=== PATIENT | male | born 1930 | race Two or more races ===

== ENCOUNTER → 2016-12-06 | Outpatient (CLI) | payer MEDICARE | LOC: RAD 16:08 | PROVIDERS: ATTEND Otolaryngology | DX: R93.0 Abnormal findings on diagnostic imaging of skull and head, not elsewhere classified (principal) | CPT/HCPCS: 70486 ==

== ENCOUNTER 2017-10-04 14:56 | Emergency (ER) | payer MEDICARE ==
--- NOTE | 2017-10-04 15:15 | ER Document Report ---
ED General - General Chief Complaint: Weakness Stated Complaint: WEAKNESS Time Seen by Provider: 10/04/17 14:58 Notes: The patient is an 87-year-old male, past medical history CHF, chronic nasal polyp, presents after he was at the doctor's office for a cough for 4 days when he had a brief syncopal episode and then vomited once. The daughter, who is an RN, said that the patient frequently has these episodes, especially when he is a passenger in the car. He will have brief episodes of syncope, awake and then vomit. 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 Patient is not having any abdominal pain and denies any current nausea, vomiting, fevers, diarrhea, constipation, chest pain, shortness of breath, focal weakness, numbness, tingling or ataxia. TRAVEL OUTSIDE OF THE [place] IN LAST 30 DAYS: No - Related Data Allergies/Adverse Reactions: No Known Allergies Allergy (Unverified 10/04/17 16:46) Past Medical History - General Information source: Patient, Relative - Social History Smoking Status: Unknown if Ever Smoked Family History: Reviewed & Not Pertinent Review of Systems - Review of Systems Notes: REVIEW OF SYSTEMS: CONSTITUTIONAL: -fevers, -chills EENT: -eye pain, -difficulty swallowing, -nasal congestion CARDIOVASCULAR: -chest pain RESPIRATORY: -cough, -SOB GASTROINTESTINAL: -abdominal pain, -nausea, +vomiting, -diarrhea GENITOURINARY: -dysuria, -hematuria MUSCULOSKELETAL: -back pain, -neck pain SKIN: -rash or skin lesions. HEMATOLOGIC: -easy bruising or bleeding. LYMPHATIC: -swollen, enlarged glands. NEUROLOGICAL: -altered mental status or loss of consciousness, -headache, - neurologic symptoms PSYCHIATRIC: -anxiety, -depression. ALL OTHER SYSTEMS REVIEWED AND NEGATIVE. Physical Exam - Vital signs Vitals: Resp 18 10/04/17 15:00 - Notes Notes: PHYSICAL EXAMINATION: GENERAL: No acute distress. HEAD: Atraumatic, normocephalic. EYES: Pupils equal round and reactive to light, extraocular movements intact, sclera anicteric, conjunctiva are normal. ENT: nares patent, oropharynx clear without exudates. Moist mucous membranes. NECK: Normal range of motion, supple without lymphadenopathy LUNGS: Breath sounds clear to auscultation bilaterally and equal. No wheezes rales or rhonchi. HEART: Regular rate and rhythm without murmurs ABDOMEN: Soft, nontender, normoactive bowel sounds. No guarding, no rebound. No masses appreciated. EXTREMITIES: Normal range of motion, no pitting or edema. No cyanosis. NEUROLOGICAL: Cranial nerves grossly intact. Normal speech, normal gait. Normal sensory and motor exams. PSYCH: Normal mood, normal affect. SKIN: Warm, Dry, normal turgor, no rashes or lesions noted. Course - Re-evaluation Re-evalutation: Patient appears well and is in no acute distress. He has absolutely no abdominal tenderness and has no nausea or vomiting. His blood work is remarkable for slight UBALDO, most likely from dehydration. He is also hypokalemic and this was repleted. 2 sets of troponins remained the same, EKG does not show any acute abnormalities and he has no chest pain to suggest ACS. Chest x-ray does not show any focal infiltrates, but patient does have a leukocytosis and crackles on exam, so we will treat with Levaquin for possible early pneumonia. Patient has had an extensive workup for these short syncopal episodes in [place]. Shared decision making was made with his daughter who is a RN. Given very strict return precautions and they understand. They will follow-up with the primary care physician this week for recheck of his symptoms and recheck of his blood work. Blood work provided to daughter to take with her. - Vital Signs Vital signs: Temp Pulse Resp BP Pulse Ox 98.8 F 19 117/76 96 10/04/17 15:45 10/04/17 21:01 10/04/17 21:01 10/04/17 21:01 - Laboratory Result Diagrams: 10/04/17 15:20 10/04/17 15:20 Laboratory results interpreted by me: 10/04/17 10/04/17 10/04/17 15:20 15:20 15:20 WBC 12.5 H RBC 4.15 L Hgb 13.2 L RDW 15.3 H Absolute Neutrophils 9.0 H Absolute Eosinophils 0.7 H VBG pH Sodium 134.0 L Potassium 2.5 L* Chloride 90 L Carbon Dioxide 32 H BUN 54 H Creatinine 1.49 H Est GFR ( Amer) 54 L Est GFR (Non-Af Amer) 45 L Glucose 129 H Lactic Acid Direct Bilirubin 0.5 H ALT 16 L Creatine Kinase 42 L NT-Pro-B Natriuret Pep 789 H Urine Blood Urine Urobilinogen Ur Leukocyte Esterase 10/04/17 10/04/17 10/04/17 15:20 15:20 16:01 WBC RBC Hgb RDW Absolute Neutrophils Absolute Eosinophils VBG pH 7.44 H Sodium Potassium Chloride Carbon Dioxide BUN Creatinine Est GFR ( Amer) Est GFR (Non-Af Amer) Glucose Lactic Acid 2.4 H Direct Bilirubin ALT Creatine Kinase NT-Pro-B Natriuret Pep Urine Blood SMALL H Urine Urobilinogen 2.0 H Ur Leukocyte Esterase TRACE H - Diagnostic Test Radiology reviewed: Image reviewed, Reports reviewed Radiology results interpreted by me: CXR: NAD - EKG Interpretation by Me EKG shows normal: Sinus rhythm, [place], Intervals, QRS Complexes, ST-T Waves Rate: Normal Discharge - Discharge Clinical Impression: Dehydration, Bronchitis Vomiting Qualifiers: Vomiting type: unspecified Vomiting Intractability: unspecified Nausea presence : without nausea Qualified Code(s): R11.11 - Vomiting without nausea Condition: Stable Disposition: HOME, SELF-CARE Additional Instructions: BRONCHITIS: You have acute bronchitis. This disease is an infection or inflammation of the air passageways in your lungs. Symptoms usually include cough, low grade fever, shortness of breath, and wheezing. The cough usually persists for a couple of weeks. Most cases of bronchitis get better without antibiotics. We prescribe antibiotics when we believe bacteria are damaging your airways, or if there's high risk the bronchitis will worsen into pneumonia. Increase your fluid intake. A cool mist humidifier may make your lungs more comfortable. An expectorant (cough medicine that loosens phlegm) can help. If you smoke, STOP!!! Recovery from bronchitis can be somewhat slow, but you should see improvement within a day or two. Repeated episodes of bronchitis may result in lung damage -- for example, chronic bronchitis, recurrent pneumonias, or emphysema. Call the doctor if you develop increasing fever, shortness of breath, chest pain, bloody sputum, or otherwise worsen. If you have not improved at all after several days, contact the physician. STEROID MEDICATION: You have been given an injection of or oral medicine of the cortisone/ steroid class. This medication is used to control inflammation or allergy. Tamir t is usually only given for a short period of time, until the acute process subsides. There are usually no side effects from short-term use of cortisone-like medications. Some persons feel an increased sense of well-being and are not sleepy at bedtime. Long-term use of cortisone medications is best avoided, unless required for a severe condition. If your condition does not remit, or relapses after the course of corticosteroid medication, you should consult your physician. ANTIBIOTIC THERAPY: You have been given an antibiotic prescription. It's important that you take all the medication, unless instructed otherwise by your physician. Failure to complete the entire course can result in relapse of your condition. Common side effects of antibiotics include nausea, intestinal cramping, or diarrhea. Women may develop vaginal yeast infections, and babies can get yeast (thrush) in the mouth following the use of antibiotics. Contact your physician if you develop significant side effects from this medication. Allergy to this antibiotic can result in hives, wheezing, faintness, or itching. If symptoms of allergy occur, stop the medication and call your doctor. USE OF ACETAMINOPHEN (Tylenol): Acetaminophen may be taken for pain relief or fever control. It's much safer than aspirin, offering a wider range of "safe" dosages. It is safe during . Some brand names are Tylenol, Panadol, Datril, Anacin 3, Tempra, and Liquiprin. Acetaminophen can be repeated every four hours. The following are maximum recommended dosages: >89 pounds or adults 650 mg to 900 mg Acetaminophen can be repeated every four hours. Maximum dose not to exceed 4000 mg a day. SMOKING: If you smoke, you should stop smoking. The tar and chemicals in cigarette smoke are harmful. Smoking has been shown to cause: emphysema chronic bronchitis lung cancer mouth and throat cancer stomach and pancreas cancer premature aging defects In addition, smoking increases ear and lung infections in children of smokers. FOLLOW-UP CARE: If you have been referred to a physician for follow-up care, call the physician s office for an appointment as you were instructed or within the next two days. If you experience worsening or a significant change in your symptoms, notify the physician immediately or return to the Emergency Department at any time for re-evaluation. Syncopal Episode Syncope (fainting or near-fainting) can occur from many different health problems. Or it can be a simple fainting spell requiring no treatment. It is safe for you to go home, but further evaluation will likely be necessary. Your work-up may include tests for internal bleeding, heart disease, medication problems, or near-strokes. Tests are not always required, however, depending on the nature of your problem. The warning signs of an impending faint include: dizziness, lightheadedness , nausea, hot flashes, tingling, and weakness. If this happens, lay down and put your feet up, then wait until all of these symptoms have passed before standing up again. If these episodes become recurrent, or if you develop chest pain, heart palpitations, mental confusion, blurred vision, or headache, then you should call the physician, or go to the emergency room. Prescriptions: Albuterol Sulfate [Proair HFA Inhalation Aerosol 8.5 gm MDI] 2 puff IH Q4H PRN # 1 mdi PRN Reason: Levofloxacin [Levaquin 750 mg Tablet] 750 mg PO DAILY #4 tablet Forms: Elevated Blood Pressure Referrals: [facility] [Outside] - Follow up as needed
[2017-10-04] MEDS ORDERED: ONDANSETRON HCL INJ/PF 4 MG/2 ML SDV IV ONE (15:17)
[2017-10-04] MEDS ORDERED: NORMAL SALINE 500 ML IV ONE (15:17)
--- NOTE | 2017-10-04 15:24 | RADIOLOGY REPORT (SQ) ---
EXAM DESCRIPTION: CT HEAD WITHOUT COMPLETED DATE/TIME: 10/04/2017 3:08 pm REASON FOR STUDY: AMS COMPARISON: None. TECHNIQUE: Axial images acquired through the brain without intravenous contrast. Images reviewed wi th bone, brain and subdural windows. Images stored on PACS. All CT scanners at this facility use dose modulation, iterative reconstruction, and/or weight based d osing when appropriate to reduce radiation dose to as low as reasonably achievable (ALARA). [facility]: Dose Right [facility]: CareDose [facility]: Dose Right [facility]: Teradose 4D [facility]: 9GAG RADIATION DOSE: CT Rad equipment meets quality standard of care and radiation dose reduction techniq ues were employed. CTDIvol: 64.6 mGy. DLP: 1034 mGy-cm. mGy. LIMITATIONS: None. FINDINGS: CEREBRUM: No CT evidence of acute large territory ischemic change, acute intracranial hemo rrhage, mass effect, or midline shift. 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 There is moder ate bifrontal chronic appearing small vessel white matter disease. CEREBELLUM: No masses. No hemorrhage. No alteration of density. No evidence for acute infarction. EXTRAAXIAL SPACES: No fluid collections. No masses. ORBITS AND GLOBE: No intra- or extraconal masses. Normal contour of globe without masses. CALVARIUM: No fracture. PARANASAL SINUSES: There are multiple large right nasal polyps with occlusion of the right maxillary sinus outlet, and opacification of the right maxillary sinus with dried secretions. SOFT TISSUES: No mass or hematoma. OTHER: No other significant finding. 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 ENT evaluation dick mmended EVIDENCE OF ACUTE STROKE: NO. COMMENT: Quality ID # [id number]: Final reports with documentation of one or more dose reduction techniques (e.g., Automated exposure control, adjustment of the mA and/or kV according to patient size, use of iterative reconstruction technique) TECHNICAL DOCUMENTATION: JOB ID: [id number] [employer]- All Rights Reserved Reading location - IP/workstation name: [facility]
[2017-10-04 15:35] LABS: ABSOLUTE BASOPHILS # (AUTO) 0.1 10^3/uL (0.0-0.2); ABSOLUTE EOSINOPHILS # (AUTO) 0.7 10^3/uL (0.0-0.6); ABSOLUTE LYMPHOCYTES (AUTO) 1.9 10^3/uL (0.5-4.7); ABSOLUTE MONOCYTES (AUTO) 0.8 10^3/uL (0.1-1.4); BASOPHILS % (AUTO) 0.7 % (0-2); EOSINOPHILS % (AUTO) 5.3 % (0-6); HEMOGLOBIN 13.2 g/dL (13.5-17.0); LYMPHOCYTES % (AUTO) 15.2 % (13-45); MEAN CORPUSCULAR HEMOGLOBIN 31.7 pg (27.0-33.4); MEAN CORPUSCULAR HGB CONC 32.9 g/dL (32.0-36.0); MEAN CORPUSCULAR VOLUME 96 fl (80-97); MONOCYTES % (AUTO) 6.5 % (3-13); PLATELET COUNT 268 10^3/uL (150-450); RED BLOOD COUNT 4.15 10^6/uL (4.35-5.55); RED CELL DISTRIBUTION WIDTH 15.3 % (11.5-14.0); SEGMENTED NEUTROPHILS % (AUTO) 72.3 % (42-78); TOTAL CELLS COUNTED % (AUTO) 100 %; WHITE BLOOD COUNT 12.5 10^3/uL (4.0-10.5)
[2017-10-04 15:37] LABS: VENOUS BLOOD BASE EXCESS 5.9 mmol/L; VENOUS BLOOD PCO2 46.2 mmHg (35-63); VENOUS BLOOD PH 7.44 (7.30-7.42)
[2017-10-04 15:54] LABS: ALANINE AMINOTRANSFERASE 16 U/L (21-72); ALKALINE PHOSPHATASE 65 U/L (38-126); ANION GAP 12 (5-19); ASPARTATE AMINO TRANSFERASE 26 U/L (17-59); BILIRUBIN,DIRECT 0.5 mg/dL (0.0-0.4); BILIRUBIN,TOTAL 0.6 mg/dL (0.2-1.3); BLOOD UREA NITROGEN 54 mg/dL (7-20); CALCIUM 8.9 mg/dL (8.4-10.2); CARBON DIOXIDE 32 mmol/L (22-30); CHLORIDE 90 mmol/L (98-107); CREATINE KINASE 42 U/L (55-170); GLUCOSE 129 mg/dL (75-110); TOTAL PROTEIN 7.4 g/dL (6.3-8.2)
[2017-10-04 16:03] LABS: POTASSIUM 2.5 mmol/L (3.6-5.0)
[2017-10-04] MEDS ORDERED: POTASSIUM CHLORIDE 10 MEQ TABLET.SA PO ONE ×2 (16:03→19:16)
[2017-10-04 16:10] LABS: TROPONIN I 0.06 ng/mL
[2017-10-04 16:27] LABS: AMORPHOUS SEDIMENT,URINE TRACE /HPF; APPEARANCE,URINE SLIGHTLY-CLOUDY; BILIRUBIN,URINE NEGATIVE (NEGATIVE); COLOR,URINE YELLOW; GLUCOSE, URINE NEGATIVE (NEGATIVE); KETONES,URINE NEGATIVE (NEGATIVE); LEUKOCYTE ESTERASE,URINE TRACE (NEGATIVE); NITRITE,URINE NEGATIVE (NEGATIVE); PROTEIN,URINE NEGATIVE (NEGATIVE)
--- NOTE | 2017-10-04 17:02 | RADIOLOGY REPORT (SQ) ---
EXAM DESCRIPTION: CHEST SINGLE VIEW COMPLETED DATE/TIME: 10/04/2017 4:45 pm REASON FOR STUDY: cough COMPARISON: None. EXAM PARAMETERS: NUMBER OF VIEWS: One view. TECHNIQUE: Single frontal radiographic view of the chest acquired. RADIATION DOSE: NA LIMITATIONS: Poor inspiration. FINDINGS: LUNGS AND PLEURA: No opacities, masses or pneumothorax. No pleural effusion. MEDIASTINUM AND HILAR STRUCTURES: No masses. Contour normal. HEART AND VASCULAR STRUCTURES: Heart normal in size. Normal vasculature. BONES: No acute findings. HARDWARE: Left subclavian pacer with single lead in the right ventricle. OTHER: Air below the right hemidiaphragm which appears to be a loop of colon, not significant. IMPRESSION: Poor inspiration without evidence of acute cardiopulmonary disease. TECHNICAL DOCUMENTATION: JOB ID: [id number] [employer]- All Rights Reserved Reading location - IP/workstation name: [email or web address]
[2017-10-04 17:13] LABS: A TYPE INFLUENZA AG NEGATIVE (NEGATIVE); B INFLUENZA AG NEGATIVE (NEGATIVE)
--- NOTE | 2017-10-04 19:06 | EKG REPORT ---
SEVERITY:- BORDERLINE ECG - SINUS RHYTHM BORDERLINE T ABNORMALITIES, DIFFUSE LEADS : Confirmed by: Juan Luis King MD 04-Oct-2017 19:05:54
[2017-10-04] MEDS ORDERED: LEVOFLOXACIN 750 MG/D5W RTU 750 MG/150 ML RTUPB IV ONE (20:10)
[2017-10-04 22:26] VITALS: BP 119/71
== END 2017-10-04 22:24 | disposition home or self-care (01) ==
LOC: ER 14:56
DX: J40 Bronchitis, not specified as acute or chronic (principal); E86.0 Dehydration; R11.11 Vomiting without nausea; R53.1 Weakness; I50.9 Heart failure, unspecified; R05 Cough; R55 Syncope and collapse
CPT/HCPCS: 93005; 99285; 96361; 51701; 96375; 96365; 36415; 82550; 83605; 83690; 85025; 80053; 81001; 84484; 82803; 87804; 83880; 71045; 70450; 93010; J2405; J7040; A9270; J1956

== ENCOUNTER 2017-12-31 23:14 | Inpatient (IN) | payer MEDICARE ==
--- NOTE | 2017-12-31 23:35 | ER Document Report ---
ED General - General Stated Complaint: CHEST PAIN Time Seen by Provider: 12/31/17 23:32 TRAVEL OUTSIDE OF THE [place] IN LAST 30 DAYS: No - HPI Notes: Note history is limited, patient is very uncomfortable, will not answer most questions. 87-year-old male with alleged epigastric discomfort. Time of onset and course is unclear what happened sometime this evening. Initially complained of some epigastric pain. He himself does not describe the pain in any way. He is somewhat tachypneic and uncomfortable. No vomiting. Has a history of constipation, has had to take some laxatives and may have had a bowel movement last day for last 1 week before that. No vomiting. - Related Data Allergies/Adverse Reactions: No Known Allergies Allergy (Unverified 10/04/17 16:46) Past Medical History - General Information source: Patient - Social History Smoking Status: Smoker,Current Status Unk Family History: Reviewed & Not Pertinent - Medical History Notes: Includes history of A. fib Renal/ Medical History: Denies: Hx Peritoneal Dialysis Review of Systems - Review of Systems -: Yes ROS unobtainable due to patient's medical condition Physical Exam - Vital signs Vitals: Resp 31 H 12/31/17 23:20 - Notes Notes: General: Well developed . Distress. HEENT: Normocephalic, atraumatic. Pupils equal round reactive to light. No JVD. Mucosa. Chest: No trauma. Respiratory: Good air exchange, normal excursion. Cardiac: Regular rhythm. No murmurs or gallops. Abdomen: Soft, mildly distended. Left mid quadrant tenderness, mild epigastric tenderness. Back: No asymmetry or gross abnormality. Motor: Grossly normal power and tone. Neurologic: Alert, nonfocal. Not cooperate with final neurologic testing. Vascular: Well perfused. Normal peripheral pulses. Skin: No petechiae or purpura. Course - Re-evaluation Re-evalutation: 12/31/17 23:34 87-year-old male with the after mentioned symptoms. Examination shows moderate abdominal tenderness. Shortly exam is concerning for underlying abdominal pathology emergency. Consider obstruction, perforation, AAA or other etiology. Plan to proceed with basic labs, obstruction series, IV fluids and access, reevaluate. 01/01/18 01:34 Labs reviewed, significant leukocytosis is noted, no bandemia. Chemistry showed an acute on chronic kidney injury, significant hypokalemia with a potassium of 2.4. Urinalysis is currently pending. Chest x-ray shows some equivocal bilateral lower lung infiltrates. Patient did undergo noncontrast CT scanning to evaluate his abdominal pain and to exclude AAA. CT scan of the abdomen shows no acute emergent abdominal abnormality, there is noted to be a renal lesion that requires later follow-up. However, it does comment on bilateral strandy opacities consistent with pneumonia. Given the patient has recently been on Levaquin, I will escalate his antibiotic coverage to cefepime and vancomycin. He is receiving IV fluids, I did perform a goal-directed bedside ultrasound which did not show any significant urine in his bladder. Soto catheter will be placed. Will be cautious with his volume resuscitation given his underlying history of congestive heart failure. Patient is also receiving IV potassium runs. - Vital Signs Vital signs: Temp Pulse Resp BP Pulse Ox 97.8 F 32 H 111/64 97 01/01/18 00:25 01/01/18 00:01 01/01/18 00:01 01/01/18 00:01 - Laboratory Result Diagrams: 12/31/17 22:50 12/31/17 22:50 Laboratory results interpreted by me: 12/31/17 12/31/17 12/31/17 22:50 22:50 22:50 WBC 20.6 H RDW 15.7 H Seg Neuts % (Manual) 79 H Abs Neuts (Manual) 16.3 H PT 17.5 H Potassium 2.4 L* Chloride 86 L Carbon Dioxide 34 H BUN 76 H Creatinine 2.42 H Est GFR ( Amer) 31 L Est GFR (Non-Af Amer) 25 L Glucose 135 H ALT 18 L Lipase 479.1 H Discharge - Discharge Clinical Impression: UBALDO (acute kidney injury), Hypokalemia Pneumonia Qualifiers: Pneumonia type: due to unspecified organism Laterality: bilateral Lung location : unspecified part of lung Qualified Code(s): J18.9 - Pneumonia, unspecified organism Condition: Serious Disposition: ADMITTED INPATIENT Admitting Provider: Hospitalist Unit Admitted: Telemetry
[2017-12-31 23:47] LABS: ALANINE AMINOTRANSFERASE 18 U/L (21-72); ALKALINE PHOSPHATASE 56 U/L (38-126); ANION GAP 18 (5-19); ASPARTATE AMINO TRANSFERASE 43 U/L (17-59); BILIRUBIN,DIRECT 0.2 mg/dL (0.0-0.4); BILIRUBIN,TOTAL 0.9 mg/dL (0.2-1.3); BLOOD UREA NITROGEN 76 mg/dL (7-20); CALCIUM 9.5 mg/dL (8.4-10.2); CARBON DIOXIDE 34 mmol/L (22-30); CHLORIDE 86 mmol/L (98-107); GLUCOSE 135 mg/dL (75-110); LIPASE 479.1 U/L (23-300); SODIUM 137.7 mmol/L (137-145); TOTAL PROTEIN 7.5 g/dL (6.3-8.2)
[2017-12-31 23:50] LABS: HEMATOCRIT 44.8 % (37.9-51.0); HEMOGLOBIN 14.7 g/dL (13.5-17.0); MEAN CORPUSCULAR HEMOGLOBIN 31.4 pg (27.0-33.4); MEAN CORPUSCULAR HGB CONC 32.8 g/dL (32.0-36.0); MEAN CORPUSCULAR VOLUME 96 fl (80-97); PLATELET COUNT 310 10^3/uL (150-450); POTASSIUM 2.4 mmol/L (3.6-5.0); RED BLOOD COUNT 4.67 10^6/uL (4.35-5.55); RED CELL DISTRIBUTION WIDTH 15.7 % (11.5-14.0); WHITE BLOOD COUNT 20.6 10^3/uL (4.0-10.5)
[2017-12-31 23:53] LABS: INTERNATIONAL RATION (INR) 1.36; PROTHROMBIN TIME 17.5 SEC (11.4-15.4)
[2018-01-01 00:08] LABS: ABSOLUTE LYMPHOCYTES# (MANUAL) 3.3 10^3/uL (0.5-4.7); ABSOLUTE NEUTROPHILS# (MANUAL) 16.3 10^3/uL (1.7-8.2); ANISOCYTOSIS SLIGHT; BASOPHILS % (MANUAL) 0 % (0-2); EOSINOPHILS % (MANUAL) 0 % (0-6); LYMPHOCYTES % (MANUAL) 16 % (13-45); MONOCYTES % (MANUAL) 5 % (3-13); PLATELET COMMENT ADEQUATE; PLATELET GIANT PRESENT; PLATELET LARGE PRESENT; SEGMENTED NEUTROPHILS % (MAN) 79 % (42-78); TOTAL CELLS COUNTED 100; TOXIC VACUOLATION PRESENT
[2018-01-01] MEDS ORDERED: POTASSI CL 20 MEQ/50 ML RIDER 20 MEQ/50 ML RTUPB IV ONE (00:14)
--- NOTE | 2018-01-01 01:07 | RADIOLOGY REPORT (SQ) ---
EXAM DESCRIPTION: CT ABDOMEN PELVIS WITHOUT IV CONTRAST CLINICAL HISTORY: 87 years Male, Pain and distention, renal insuff Comparison: None. Technique: No contrast. Coronal and sagittal reformat. This exam was performed according to our departmental dose-optimization program, which includes automated exposure control, adjustment of the mA and/or kV according to patient size and/or use of iterative reconstruction technique.[facility]: Dose Right [facility]: CareDose [facility]: Dose Right [facility]: Teradose 4D [facility]: Kardium LIMITATIONS: None. Findings: Indeterminate left renal lesions measure up to 1.9 cm, 22-HU. Small strandy and consolidative opacity of bilateral lower lobes. Atherosclerosis. Moderate colonic stool retention. Normal appendix. Small bilateral inguinal fat only hernia. Likely benign 1.2 cm low-attenuation left hepatic lesion not definitively characterized. Moderate disc desiccation between L2 and S1 include 0.5 cm degenerative L3 and L4 retrolisthesis. Bone demineralization. Unenhanced lower thorax, abdominopelvic structures, and musculoskeleton appear otherwise grossly unremarkable. Impression: 1. Small bilateral lower lobar pneumonia/atelectasis. 2. Indeterminate left renal lesions measure up to 1.9 cm. Recommend further evaluation with multiphasic contrast CT or MRI of the renal system.
--- NOTE | 2018-01-01 01:16 | RADIOLOGY REPORT (SQ) ---
EXAM DESCRIPTION: XR CHEST 1 VIEW CLINICAL HISTORY: 87 years Male, Dyspnea COMPARISON: 2.23.18. CT abdomen pelvis, same day. NUMBER OF VIEWS/TECHNIQUE: 1/AP FINDINGS: Moderate lung volume, mild central edema pattern, normal cardiac silhouette, left cardiac stimulator with lead, and mild osteoarthritis. IMPRESSION: Mild central edema pattern.
[2018-01-01] MEDS ORDERED: VANCOMYCIN HCL INJ 1000 MG VIAL IV ONE (01:18)
[2018-01-01] MEDS ORDERED: CEFEPIME 2 GM/D5W RTU 2 GM/50 ML RTUPB IV ONE (01:18)
[2018-01-01] MEDS ORDERED: NORMAL SALINE 1000 ML 500 ML IV ONE (01:18)
[2018-01-01] MEDS ORDERED: GUAIFENESIN SYRP 200 MG/10 ML UDC PO PRN (01:24)
[2018-01-01] MEDS ORDERED: IPRATROPIUM/ALBUTEROL 0.5-2.5 MG/3 ML AMPUL NEB PRN (01:24)
[2018-01-01] MEDS ORDERED: POTASSIUM CHLORIDE 10 MEQ TABLET.SA PO ONE (01:28)
[2018-01-01] MEDS ORDERED: MAGNESIUM OXIDE 400 MG TABLET PO ONE (01:28)
[2018-01-01] MEDS ORDERED: VANCOMYCIN HCL 0 MG in DEXTROSE 5%-WATER 250 ML IV NR (01:30)
[2018-01-01] MEDS ORDERED: NORMAL SALINE 1000 ML 1,000 ML IV SCH (01:30)
[2018-01-01 03:19] LABS: APPEARANCE,URINE CLEAR; BILIRUBIN,URINE NEGATIVE (NEGATIVE); COLOR,URINE YELLOW; GLUCOSE, URINE NEGATIVE (NEGATIVE); KETONES,URINE NEGATIVE (NEGATIVE); LEUKOCYTE ESTERASE,URINE TRACE (NEGATIVE); NITRITE,URINE NEGATIVE (NEGATIVE); PROTEIN,URINE NEGATIVE (NEGATIVE); URINE SPECIFIC GRAVITY 1.013; UROBILINOGEN,URINE NEGATIVE mg/dL (<2.0)
[2018-01-01] MEDS ORDERED: LACTULOSE SYRUP 20 GM/30 ML UDCUP PO ONE (05:21)
--- NOTE | 2018-01-01 05:31 | PDOC H&P ---
History of Present Illness Admission Date/PCP: 01/01/18 01:33 Patient complains of: Abdominal pain and cough History of Present Illness: ROSA RODARTE is a 87 year old male with history of dementia, coronary artery disease, unclear heart failure, chronic constipation, atrial fibrillation and physical debility. Patient recently treated for suspected bronchitis with Levaquin who now presents with vague abdominal pain and cough. Patient is an extremely poor historian unable to provide meaningful history. In the emergency room he is found to have leukocytosis of 20,000, prerenal azotemia, metabolic alkalosis and hypokalemia. A CT of chest, abdomen pelvis revealed atelectasis versus pneumonia in the bases bilaterally, moderate stool retention and a renal cyst. Urinalysis is unremarkable. He receives empiric antibiotics of vancomycin and cefepime and referred to the hospitalist for admission. Past Medical History Cardiac Medical History: Reports: Atrial Fibrillation, Congestive Heart Failure , Coronary Artery Disease, Hypertension Pulmonary Medical History: Reports: None EENT Medical History: Reports: None Neurological Medical History: Reports: None Endocrine Medical History: Reports: None Renal/ Medical History: Reports: Chronic Kidney Disease Malignancy Medical History: Reports: None GI Medical History: Reports: Other - Chronic constipation Psychiatric Medical History: Reports: Dementia Social History Information Source: Relative, POA - Power of Phlebotomist Associate Lives with: Family Smoking Status: Smoker,Current Status Unk Frequency of Alcohol Use: None Hx Recreational Drug Use: No Drugs: None Hx Prescription Drug Abuse: No - Advance Directive Resuscitation Status: Full Code Family History Family History: Hypertension Parental Family History Reviewed: Yes Children Family History Reviewed: Yes Sibling(s) Family History Reviewed.: Yes Medication/Allergy Home Medications: Albuterol Sulfate [Proair HFA Inhalation Aerosol 8.5 gm MDI] 2 puff IH Q4H PRN # 1 mdi 10/04/17 Levofloxacin [Levaquin 750 mg Tablet] 750 mg PO DAILY #4 tablet 10/04/17 Allergies/Adverse Reactions: No Known Allergies Allergy (Unverified 10/04/17 16:46) Review of Systems ROS unobtainable: Due to mental status Physical Exam Vital Signs: Temp Pulse Resp BP Pulse Ox 97.7 F 65 22 H 121/81 100 01/01/18 04:39 01/01/18 04:39 01/01/18 04:39 01/01/18 04:39 01/01/18 04:39 Intake & Output 12/30/17 12/31/17 01/01/18 11:59 11:59 11:59 Weight 75.1 kg General appearance: PRESENT: cooperative, disheveled, mild distress. ABSENT: obese, severe distress Head exam: PRESENT: atraumatic, normocephalic Eye exam: PRESENT: conjunctiva pink, EOMI, PERRLA. ABSENT: scleral icterus Ear exam: PRESENT: normal external ear exam Mouth exam: PRESENT: moist, tongue midline Neck exam: ABSENT: carotid bruit, JVD, lymphadenopathy, thyromegaly Respiratory exam: PRESENT: crackles, rales, symmetrical, tachypnea. ABSENT: retraction, rhonchi Cardiovascular exam: PRESENT: RRR. ABSENT: diastolic murmur, rubs, systolic murmur Pulses: PRESENT: normal dorsalis pedis pul Vascular exam: PRESENT: normal capillary refill GI/Abdominal exam: PRESENT: normal bowel sounds, soft. ABSENT: distended, guarding, mass, organolmegaly, rebound, tenderness Rectal exam: PRESENT: deferred Extremities exam: PRESENT: full ROM. ABSENT: calf tenderness, clubbing, pedal edema Neurological exam: PRESENT: alert, altered, awake, oriented to person, CN II- XII grossly intact. ABSENT: oriented to place, oriented to time Psychiatric exam: PRESENT: appropriate affect, normal mood. ABSENT: homicidal ideation, suicidal ideation Skin exam: PRESENT: dry, intact, warm. ABSENT: cyanosis, rash Results Laboratory Results: 01/01/18 02:44 Urine Color YELLOW Urine Appearance CLEAR Urine pH 6.0 Ur Specific [place] 1.013 Urine Protein NEGATIVE Urine Glucose (UA) NEGATIVE Urine Ketones NEGATIVE Urine Blood SMALL H Urine Nitrite NEGATIVE Ur Leukocyte Esterase TRACE H Urine WBC (Auto) 4 Urine RBC (Auto) 3 Impressions: Chest X-Ray 12/31/17 23:55 IMPRESSION: Mild central edema pattern. Assessment & Plan - Diagnosis (1) Pneumonia Qualifiers: Pneumonia type: due to unspecified organism Laterality: bilateral Lung location: unspecified part of lung Qualified Code(s): J18.9 - Pneumonia, unspecified organism Is this a current diagnosis for this admission?: Yes Plan: Pneumonia care set, incentive spirometry, flutter valve, empiric antibiotics follow-up CBC and blood culture (2) Metabolic alkalosis Is this a current diagnosis for this admission?: Yes Plan: Likely secondary to poor p.o. intake and Zaroxolyn. IV fluid challenge hold Zaroxolyn reevaluate chemistry (3) UBALDO (acute kidney injury) Is this a current diagnosis for this admission?: Yes Plan: prerenal, IV fluid challenge hold Zaroxolyn reevaluate chemistry (4) Hypokalemia Is this a current diagnosis for this admission?: Yes Plan: Likely secondary to Zaroxolyn was held, replete potassium, follow up check magnesium - Time Time Spent: 50 to 70 Minutes - Inpatient Certification Medical Necessity: Need Close Monitoring Due to Risk of Patient Decompensation
[2018-01-01] MEDS: HEPARIN SOD (PORCINE) 5,000 UNIT/ML 1 ML SYRINGE SUBCUT SCH ×3 (05:49→21:09)
[2018-01-01 06:03] LABS: ABSOLUTE EOSINOPHILS # (AUTO) 0.1 10^3/uL (0.0-0.6); ABSOLUTE LYMPHOCYTES (AUTO) 2.2 10^3/uL (0.5-4.7); ABSOLUTE MONOCYTES (AUTO) 1.1 10^3/uL (0.1-1.4); ABSOLUTE NEUT (AUTO) 13.5 10^3/uL (1.7-8.2); BASOPHILS % (AUTO) 0.2 % (0-2); EOSINOPHILS % (AUTO) 0.8 % (0-6); HEMATOCRIT 38.3 % (37.9-51.0); HEMOGLOBIN 12.7 g/dL (13.5-17.0); MEAN CORPUSCULAR HEMOGLOBIN 31.3 pg (27.0-33.4); MEAN CORPUSCULAR HGB CONC 33.1 g/dL (32.0-36.0); MEAN CORPUSCULAR VOLUME 95 fl (80-97); MONOCYTES % (AUTO) 6.4 % (3-13); PLATELET COUNT 236 10^3/uL (150-450); RED BLOOD COUNT 4.04 10^6/uL (4.35-5.55); RED CELL DISTRIBUTION WIDTH 15.2 % (11.5-14.0); SEGMENTED NEUTROPHILS % (AUTO) 79.6 % (42-78); TOTAL CELLS COUNTED % (AUTO) 100 %
[2018-01-01 06:26] LABS: ANION GAP 14 (5-19); BLOOD UREA NITROGEN 75 mg/dL (7-20); CARBON DIOXIDE 31 mmol/L (22-30); CHLORIDE 90 mmol/L (98-107); GLUCOSE 101 mg/dL (75-110); SODIUM 135.4 mmol/L (137-145)
[2018-01-01 06:29] LABS: POTASSIUM 2.5 mmol/L (3.6-5.0)
[2018-01-01 06:31] LABS: CREATINE KINASE MB 1.61 ng/mL (<4.55); TROPONIN I 0.09 ng/mL
--- NOTE | 2018-01-01 07:24 | EKG REPORT ---
SEVERITY:- ABNORMAL ECG - SINUS RHYTHM VENTRICULAR PREMATURE COMPLEX IDIOVENTRICULAR RHYTHM : Confirmed by: Juan Luis King MD 01-Jan-2018 07:24:31
[2018-01-01] MEDS: IPRATROPIUM/ALBUTEROL 0.5-2.5 MG/3 ML AMPUL NEB SCH ×3 (08:37→23:19)
[2018-01-01] MEDS: CEFEPIME 1 GM/D5W RTU 1 GM/50 ML RTUPB IV SCH ×2 (11:12→21:09)
--- NOTE | 2018-01-01 19:23 | PDOC PROGRESS REPORT ---
Subjective Progress Note for:: 01/01/18 Subjective:: The patient is resting in his bed. His daughter is not at the bedside. He is awake and alert and answers questions fairly appropriately although he does get confused at times. He states that he is feeling better. He states that he does not usually wear oxygen at home. He continues to have a cough with bronchospasm at times. No fever chills. No nausea vomiting or diarrhea. He does not have much of an appetite. No urinary complaints. Reason For Visit: ARF,HYPOKALEMIA PNEUMONIA Physical Exam Vital Signs: Temp Pulse Resp BP Pulse Ox 97.4 F 75 18 109/64 98 01/01/18 16:00 01/01/18 16:38 01/01/18 16:38 01/01/18 16:00 01/01/18 16:38 Intake & Output 12/31/17 01/01/18 01/02/18 06:59 06:59 06:59 Intake Total 400 2657 Output Total 250 700 Balance 150 1957 Weight 75.1 kg General appearance: PRESENT: no acute distress, other - He is receiving oxygen via nasal cannula Head exam: PRESENT: atraumatic, normocephalic Mouth exam: PRESENT: moist, tongue midline Respiratory exam: PRESENT: rhonchi - The patient has coarse breath sounds noted throughout all lung john anteriorly. Cardiovascular exam: PRESENT: RRR. ABSENT: diastolic murmur, rubs, systolic murmur GI/Abdominal exam: PRESENT: normal bowel sounds, soft. ABSENT: distended, guarding, mass, organolmegaly, rebound, tenderness Rectal exam: PRESENT: deferred Extremities exam: PRESENT: full ROM. ABSENT: calf tenderness, clubbing, pedal edema Neurological exam: PRESENT: alert, awake, oriented to person, oriented to place , oriented to time, oriented to situation, CN II-XII grossly intact. ABSENT: motor sensory deficit Psychiatric exam: PRESENT: appropriate affect, normal mood. ABSENT: homicidal ideation, suicidal ideation Skin exam: PRESENT: dry, intact, warm. ABSENT: cyanosis, rash Results Laboratory Results: 01/01/18 05:45 01/01/18 05:45 01/01/18 01/01/18 01/01/18 02:44 05:45 05:45 WBC 17.0 H RBC 4.04 L Hgb 12.7 L Hct 38.3 MCV 95 MCH 31.3 MCHC 33.1 RDW 15.2 H Plt Count 236 Seg Neutrophils % 79.6 H Lymphocytes % 13.0 Monocytes % 6.4 Eosinophils % 0.8 Basophils % 0.2 Absolute Neutrophils 13.5 H Absolute Lymphocytes 2.2 Absolute Monocytes 1.1 Absolute Eosinophils 0.1 Absolute Basophils 0.0 Sodium 135.4 L Potassium 2.5 L* Chloride 90 L Carbon Dioxide 31 H Anion Gap 14 BUN 75 H Creatinine 2.02 H Est GFR ( Amer) 38 L Est GFR (Non-Af Amer) 31 L Glucose 101 Lactic Acid Calcium 9.0 Urine Color YELLOW Urine Appearance CLEAR Urine pH 6.0 Ur Specific [place] 1.013 Urine Protein NEGATIVE Urine Glucose (UA) NEGATIVE Urine Ketones NEGATIVE Urine Blood SMALL H Urine Nitrite NEGATIVE Ur Leukocyte Esterase TRACE H Urine WBC (Auto) 4 Urine RBC (Auto) 3 01/01/18 05:45 WBC RBC Hgb Hct MCV MCH MCHC RDW Plt Count Seg Neutrophils % Lymphocytes % Monocytes % Eosinophils % Basophils % Absolute Neutrophils Absolute Lymphocytes Absolute Monocytes Absolute Eosinophils Absolute Basophils Sodium Potassium Chloride Carbon Dioxide Anion Gap BUN Creatinine Est GFR ( Amer) Est GFR (Non-Af Amer) Glucose Lactic Acid 2.3 H Calcium Urine Color Urine Appearance Urine pH Ur Specific [place] Urine Protein Urine Glucose (UA) Urine Ketones Urine Blood Urine Nitrite Ur Leukocyte Esterase Urine WBC (Auto) Urine RBC (Auto) 01/01/18 01/01/18 05:45 05:45 Creatine Kinase 41 L CK-MB (CK-2) 1.61 Troponin I 0.090 NT-Pro-B Natriuret Pep 845 H Impressions: Chest X-Ray 12/31/17 23:55 IMPRESSION: Mild central edema pattern. Assessment & Plan - Diagnosis (1) Acute respiratory failure with hypoxia Is this a current diagnosis for this admission?: Yes Plan: The patient does not wear oxygen at home. His respiratory failure is due to his underlying pneumonia. Continue oxygen support as needed and breathing treatments. Therapy will be outlined below (2) Sepsis due to pneumonia Is this a current diagnosis for this admission?: Yes Plan: Present on admission manifested by leukocytosis, tachycardia, hypertension. The patient also had an elevated lactic acid level and an acute kidney injury. The patient did have evidence of pneumonia on chest x-ray. Concerns were for gram negatives and MRSA. He will continue IV vancomycin and cefepime. This is the first full day of treatment (3) Acute renal failure Is this a current diagnosis for this admission?: Yes Plan: Secondary to sepsis. He also was slightly dehydrated. The patient has received quite a bit of IV fluids. He will have a chemistry panel drawn in the morning. (4) Metabolic alkalosis Is this a current diagnosis for this admission?: Yes Plan: Likely due to his underlying pneumonia and respiratory status. (5) Precipitous drop in hematocrit Is this a current diagnosis for this admission?: Yes Plan: Secondary to hemodilution. (6) Hyponatremia Is this a current diagnosis for this admission?: Yes Plan: Likely due to acute illness. He will have a sodium level drawn in the morning. (7) Full code status Is this a current diagnosis for this admission?: Yes Plan: According to the nursing staff the patient was on hospice services before he came into the hospital. Certainly this seems to have been revoked. I am not sure if the patient the patient does answer questions appropriately however he is somewhat confused. I am going to discuss his CODE STATUS further with his daughter and explore what their goals of care are and whether hospice is appropriate for them at discharge. - Time Time Spent with patient: 25-34 minutes - Inpatient Certification Medical Necessity: Need Close Monitoring Due to Risk of Patient Decompensation - Inpatient hospitalization remains necessary. Patient is sepsis with pneumonia. He is requiring parenteral therapies. The is of advanced age and at high risk of decompensation. Timing of disposition will be determined by his clinical course, Need For IV Fluids, Need for IV Antibiotics, Other
[2018-01-02 05:06] LABS: ABSOLUTE EOSINOPHILS # (AUTO) 0.3 10^3/uL (0.0-0.6); ABSOLUTE LYMPHOCYTES (AUTO) 1.6 10^3/uL (0.5-4.7); ABSOLUTE MONOCYTES (AUTO) 0.8 10^3/uL (0.1-1.4); ABSOLUTE NEUT (AUTO) 10.4 10^3/uL (1.7-8.2); BASOPHILS % (AUTO) 0.3 % (0-2); EOSINOPHILS % (AUTO) 1.9 % (0-6); HEMATOCRIT 36.1 % (37.9-51.0); HEMOGLOBIN 11.9 g/dL (13.5-17.0); LYMPHOCYTES % (AUTO) 12.1 % (13-45); MEAN CORPUSCULAR HEMOGLOBIN 31.5 pg (27.0-33.4); MEAN CORPUSCULAR HGB CONC 32.9 g/dL (32.0-36.0); MEAN CORPUSCULAR VOLUME 96 fl (80-97); MONOCYTES % (AUTO) 6.5 % (3-13); PLATELET COUNT 179 10^3/uL (150-450); RED BLOOD COUNT 3.76 10^6/uL (4.35-5.55); RED CELL DISTRIBUTION WIDTH 15.2 % (11.5-14.0); SEGMENTED NEUTROPHILS % (AUTO) 79.2 % (42-78); TOTAL CELLS COUNTED % (AUTO) 100 %; WHITE BLOOD COUNT 13.1 10^3/uL (4.0-10.5)
[2018-01-02] MEDS: HEPARIN SOD (PORCINE) 5,000 UNIT/ML 1 ML SYRINGE SUBCUT SCH (05:08)
[2018-01-02 05:23] LABS: ANION GAP 11 (5-19); BLOOD UREA NITROGEN 58 mg/dL (7-20); CARBON DIOXIDE 32 mmol/L (22-30); CHLORIDE 94 mmol/L (98-107); GLUCOSE 93 mg/dL (75-110); SODIUM 137.3 mmol/L (137-145)
[2018-01-02 05:34] LABS: POTASSIUM 2.9 mmol/L (3.6-5.0)
[2018-01-02] MEDS ORDERED: POTASSIUM CHLORIDE 10 MEQ TABLET.SA PO ONE (06:00)
[2018-01-02] MEDS ORDERED: VANCOMYCIN HCL 500 MG in DEXTROSE 5%-WATER 100 ML IV SCH (06:00)
[2018-01-02] MEDS: IPRATROPIUM/ALBUTEROL 0.5-2.5 MG/3 ML AMPUL NEB SCH ×3 (08:29→23:26)
--- NOTE | 2018-01-02 09:18 | RADIOLOGY REPORT (SQ) ---
EXAM DESCRIPTION: CHEST SINGLE VIEW COMPLETED DATE/TIME: 01/02/2018 9:00 am REASON FOR STUDY: f/u pna, r/o chf COMPARISON: 01/01/2018, 10/04/2017 EXAM PARAMETERS: NUMBER OF VIEWS: One view. TECHNIQUE: Single frontal radiographic view of the chest acquired. RADIATION DOSE: NA LIMITATIONS: None. FINDINGS: LUNGS AND PLEURA: No opacities, masses or pneumothorax. No pleural effusion. MEDIASTINUM AND HILAR STRUCTURES: No masses. Contour normal. HEART AND VASCULAR STRUCTURES: Moderate cardiomegaly, stable BONES: No acute findings. HARDWARE: Left single lead pacemaker OTHER: No other significant finding. IMPRESSION: Moderate cardiomegaly. No acute changes TECHNICAL DOCUMENTATION: JOB ID: [id number] Sealed- All Rights Reserved Reading location - IP/workstation name: [email or web address]
[2018-01-02] MEDS: POTASSIUM CHLORIDE 20 MEQ/50 ML RTU IV SCH ×2 (11:20→11:31)
[2018-01-02] MEDS ORDERED: POTASSIUM CHLORIDE 20 MEQ/50 ML RTU IV ONE (11:30)
[2018-01-02] MEDS: CEFEPIME 1 GM/D5W RTU 1 GM/50 ML RTUPB IV SCH (11:40)
--- NOTE | 2018-01-02 12:10 | PDOC CONSULTATION ---
Consultation Consult Date: 01/01/18 Attending physician:: SANDY ZAMORNAO Consult reason:: Shortness of breath, CHF History of Present Illness Admission Date/PCP: 01/01/18 01:33 Patient complains of: Shortness of breath History of Present Illness: ROSA RODARTE is a 87 year old male with history of dementia, coronary artery disease, unclear heart failure, chronic constipation, atrial fibrillation and physical debility. Patient recently treated for suspected bronchitis with Levaquin who now presents with vague abdominal pain and cough. Patient is an extremely poor historian unable to provide meaningful history. In the emergency room he is found to have leukocytosis of 20,000, prerenal azotemia, metabolic alkalosis and hypokalemia. A CT of chest, abdomen pelvis revealed atelectasis versus pneumonia in the bases bilaterally, moderate stool retention and a renal cyst. Urinalysis is unremarkable. He receives empiric antibiotics of vancomycin and cefepime and referred to the hospitalist for above. Patient has history of atrial fibrillation. He also has a history of pacemaker placement. His troponin I level was noted to be mildly elevated. I was therefore asked to evaluate patient and help with cardiovascular management. Also it was noted that patient has had some near syncopal and syncopal spells, these are preceded by nausea vomiting and sweating spells. Review of records shows that patient on admission was also noted to have low oxygen saturation. Therefore he was noted to be hypoxemic. Past Medical History Cardiac Medical History: Reports: Atrial Fibrillation, Congestive Heart Failure , Coronary Artery Disease, Hypertension Pulmonary Medical History: Reports: None EENT Medical History: Reports: None Neurological Medical History: Reports: None Endocrine Medical History: Reports: None Renal/ Medical History: Reports: Chronic Kidney Disease Malignancy Medical History: Reports: None GI Medical History: Reports: Other - Chronic constipation Psychiatric Medical History: Reports: Dementia Past Surgical History Past Surgical History: Reports: Pacemaker Social History Information Source: Patient Lives with: Family Smoking Status: Smoker,Current Status Unk Frequency of Alcohol Use: None Hx Recreational Drug Use: No Drugs: None Hx Prescription Drug Abuse: No - Advance Directive Resuscitation Status: Full Code Surrogate healthcare decision maker:: Patient's daughter is the surrogate decision-maker Family History Family History: Hypertension Parental Family History Reviewed: Yes Children Family History Reviewed: Yes Sibling(s) Family History Reviewed.: Yes Medication/Allergy Home Medications: Albuterol Sulfate [Albuterol Sulfate 2.5mg/3 mL] 1 vial IH QIDP PRN 01/01/18 Allopurinol [Zyloprim 300 mg Tablet] 300 mg PO DAILY 01/01/18 Apixaban [Eliquis 2.5 mg Tablet] 2.5 mg PO Q12 01/01/18 Cholecalciferol (Vitamin D3) [Vitamin D3 2000 unit Tablet] 2,000 unit PO DAILY 01/01/18 Donepezil HCl [Aricept 5 mg Tablet] 5 mg PO QHS 01/01/18 Fexofenadine HCl [Naz Allergy] 180 mg PO DAILY 01/01/18 Furosemide [Lasix 40 mg Tablet] 40 mg PO Q12 01/01/18 Metolazone [Zaroxolyn 5 Mg Tablet] 5 mg PO DAILYP PRN 01/01/18 Metoprolol Succinate [Toprol Xl 25 mg Tab.sr] 12.5 mg PO DAILY 01/01/18 Omeprazole 20 mg PO DAILY 01/01/18 Allergies/Adverse Reactions: No Known Allergies Allergy (Unverified 10/04/17 16:46) Review of Systems ROS unobtainable: Due to mental status Physical Exam Vital Signs: Temp Pulse Resp BP Pulse Ox 97.4 F 75 18 109/64 98 01/01/18 16:00 01/01/18 16:38 01/01/18 16:38 01/01/18 16:00 01/01/18 16:38 Intake & Output 12/31/17 01/01/18 01/02/18 06:59 06:59 06:59 Intake Total 400 2657 Output Total 250 700 Balance 150 1957 Weight 75.1 kg Exam: GENERAL: well-nourished and in no acute distress. Alert and oriented x2 HEAD: Atraumatic, normocephalic. EYES: Pupils equal round and reactive to light, extraocular movements intact, sclera anicteric, conjunctiva are normal. ENT: TMs normal, nares patent, oropharynx clear without exudates. Moist mucous membranes. No oral ulcerations or bleeding gums noted NECK: supple without lymphadenopathy. Trachea is central. No cervical or axillary lymphadenopathy noted. Carotids are 2+, JVD WNL LUNGS: Respiration seems nonlabored, no significant accessory muscle action noted. Bibasilar fine crackles and few a scattered wheezes rales or rhonchi noted. No significant dullness noted on percussion. CHEST: Palpation of the chest wall shows no significant chest wall tenderness. HEART: [employer] [place] [employer], No PSH, 1/6 YOL[place]DA aortic area, 1/6 [place] systolic murmur mitral area, no rubs, no gallops. ABDOMEN: Soft, no significant tenderness appreciated, normoactive bowel sounds. No guarding, no rebound. No rigidity noted . No masses appreciated. EXTREMITIES: Pedal pulses are 1-2+, no calf tenderness noted. No clubbing or cyanosis. 1+ pedal edema noted NEUROLOGICAL: Focused neurological exam showed no significant neurologic deficit. Normal speech, no focal weakness appreciated. PSYCH: Normal mood, normal affect. Judgment and insight not checked. Patient does have dementia. SKIN: No significant ecchymosis, skin is noted to be warm. MUSCULOSKELETAL EXAM: No significant acute joint swelling noted. Results Laboratory Results: 01/01/18 05:45 01/01/18 05:45 01/01/18 01/01/18 01/01/18 02:44 05:45 05:45 WBC 17.0 H RBC 4.04 L Hgb 12.7 L Hct 38.3 MCV 95 MCH 31.3 MCHC 33.1 RDW 15.2 H Plt Count 236 Seg Neutrophils % 79.6 H Lymphocytes % 13.0 Monocytes % 6.4 Eosinophils % 0.8 Basophils % 0.2 Absolute Neutrophils 13.5 H Absolute Lymphocytes 2.2 Absolute Monocytes 1.1 Absolute Eosinophils 0.1 Absolute Basophils 0.0 Sodium 135.4 L Potassium 2.5 L* Chloride 90 L Carbon Dioxide 31 H Anion Gap 14 BUN 75 H Creatinine 2.02 H Est GFR ( Amer) 38 L Est GFR (Non-Af Amer) 31 L Glucose 101 Lactic Acid Calcium 9.0 Urine Color YELLOW Urine Appearance CLEAR Urine pH 6.0 Ur Specific [place] 1.013 Urine Protein NEGATIVE Urine Glucose (UA) NEGATIVE Urine Ketones NEGATIVE Urine Blood SMALL H Urine Nitrite NEGATIVE Ur Leukocyte Esterase TRACE H Urine WBC (Auto) 4 Urine RBC (Auto) 3 01/01/18 05:45 WBC RBC Hgb Hct MCV MCH MCHC RDW Plt Count Seg Neutrophils % Lymphocytes % Monocytes % Eosinophils % Basophils % Absolute Neutrophils Absolute Lymphocytes Absolute Monocytes Absolute Eosinophils Absolute Basophils Sodium Potassium Chloride Carbon Dioxide Anion Gap BUN Creatinine Est GFR ( Amer) Est GFR (Non-Af Amer) Glucose Lactic Acid 2.3 H Calcium Urine Color Urine Appearance Urine pH Ur Specific [place] Urine Protein Urine Glucose (UA) Urine Ketones Urine Blood Urine Nitrite Ur Leukocyte Esterase Urine WBC (Auto) Urine RBC (Auto) 01/01/18 01/01/18 05:45 05:45 Creatine Kinase 41 L CK-MB (CK-2) 1.61 Troponin I 0.090 NT-Pro-B Natriuret Pep 845 H EKG Comments: Shows sinus rhythm, ventricular paced beats and occasional VPCs. No acute ST segment changes noted on sinus beats. Impressions: Chest X-Ray 12/31/17 23:55 IMPRESSION: Mild central edema pattern. Assessment & Plan - Diagnosis (1) Congestive heart failure Qualifiers: Heart failure type: unspecified Is this a current diagnosis for this admission?: Yes (2) Cardiac pacemaker in situ Is this a current diagnosis for this admission?: Yes (3) Acute respiratory failure with hypoxia Is this a current diagnosis for this admission?: Yes (4) Hypokalemia Is this a current diagnosis for this admission?: Yes (5) Pneumonia Qualifiers: Pneumonia type: due to unspecified organism Laterality: bilateral Lung location: unspecified part of lung Qualified Code(s): J18.9 - Pneumonia, unspecified organism Is this a current diagnosis for this admission?: Yes (6) UBALDO (acute kidney injury) Is this a current diagnosis for this admission?: Yes (7) Paroxysmal atrial fibrillation Is this a current diagnosis for this admission?: Yes - Notes Notes: Congestive heart failure: Patient has elevated BNP. Patient has bibasilar infiltrate on chest x-ray. Patient presentation was for dyspnea. At this point patient seems to be in mild CHF. Will monitor for any fluid overload. A 2D echo has been ordered to evaluate because of CHF. Cardiac pacemaker in situ: This was placed approximately 3 years ago. Patient has a single-chamber pacemaker. Most likely placed because of underlying atrial fibrillation and bradycardia. Recent interrogation to be reviewed. Acute respiratory failure with hypoxemia: Most likely due to combination of COPD , pneumonia and CHF. Continue with oxygen supplementation. Hypokalemia: Patient has severe hypokalemia. Need to evaluate cause for it. Will recommend spironolactone therapy if LVEF is also noted to be depressed. Pneumonia: Continue with antibiotic therapy. Patient will benefit from pulmonary toilet. Acute kidney injury: Possibly related to pneumonia, some hypoxemia, sepsis. Likely to improve gradually. Continue to monitor renal functions. Paroxysmal atrial fibrillation: Her feet. Currently on rate control and chronic anticoagulation's strategy. Continue Eliquis. Continue a small dose of beta-jeannie that patient was on at home. - Time Time Spent: 30 to 50 Minutes - CODE STATUS was discussed, patient remains full code. Surrogate decision-maker patient's daughter. Multiple medical problems were addressed. More than 50% of the time spent coordinating care, discussing management plans with involved caregivers. Management plans discussed with involved personnels. Medical decision making was of moderate to high complexity , patient's has multiple comorbidities. Medications reviewed and adjusted accordingly: Yes
--- NOTE | 2018-01-02 12:21 | PDOC PROGRESS REPORT ---
Subjective Progress Note for:: 01/02/18 Subjective:: Patient seems to be doing better with gradual improvement. Pt is denying any chest arm or neck discomfort. Patient still has some shortness of breath. Patient's daughter at bedside. Patient denying any PND, orthopnea. Patient denied any sustained palpitations, dizziness, syncope, near syncope. Patient denying any fever chills. Patient denying any other significant discomfort. Patient is maintaining sinus rhythm. Intermittent ventricular paced beats noted. Review of systems: Rest review of systems negative. Medications: Medications have been reviewed. Reason For Visit: ARF,HYPOKALEMIA PNEUMONIA Physical Exam Vital Signs: Temp Pulse Resp BP Pulse Ox 97.3 F 78 14 103/65 100 01/02/18 08:00 01/02/18 11:01 01/02/18 11:01 01/02/18 11:01 01/02/18 11:01 Intake & Output 01/01/18 01/02/18 01/03/18 06:59 06:59 06:59 Intake Total 400 3194 Output Total 250 2000 Balance 150 1194 Weight 75.1 kg 79.5 kg Exam: GENERAL: well-nourished and in no acute distress. Alert and oriented x3 HEAD: Atraumatic, normocephalic. EYES: Pupils equal round and reactive to light, extraocular movements intact, sclera anicteric, conjunctiva are normal. ENT: TMs normal, nares patent, oropharynx clear without exudates. Moist mucous membranes. No oral ulcerations or bleeding gums noted NECK: supple without lymphadenopathy. Trachea is central. No cervical or axillary lymphadenopathy noted. Carotids are 2+, JVD 8 cm LUNGS: Respiration seems nonlabored, no significant accessory muscle action noted. Bibasilar fine crackles and few a scattered wheezes rales or rhonchi noted. No significant dullness noted on percussion. CHEST: Palpation of the chest wall shows no significant chest wall tenderness. 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 ABDOMEN: Soft, no significant tenderness appreciated, normoactive bowel sounds. No guarding, no rebound. No rigidity noted . No masses appreciated. EXTREMITIES: Pedal pulses are 1-2+, no calf tenderness noted. No clubbing or cyanosis. 1+ pedal edema noted NEUROLOGICAL: Focused neurological exam showed no significant neurologic deficit. Normal speech, no focal weakness appreciated. PSYCH: Normal mood, normal affect. Judgment and insight within normal limits. SKIN: No significant ecchymosis, skin is noted to be warm. MUSCULOSKELETAL EXAM: No significant acute joint swelling noted. Results Laboratory Results: 01/02/18 04:24 01/02/18 04:24 01/02/18 01/02/18 04:24 04:24 WBC 13.1 H RBC 3.76 L Hgb 11.9 L Hct 36.1 L MCV 96 MCH 31.5 MCHC 32.9 RDW 15.2 H Plt Count 179 Seg Neutrophils % 79.2 H Lymphocytes % 12.1 L Monocytes % 6.5 Eosinophils % 1.9 Basophils % 0.3 Absolute Neutrophils 10.4 H Absolute Lymphocytes 1.6 Absolute Monocytes 0.8 Absolute Eosinophils 0.3 Absolute Basophils 0.0 Sodium 137.3 Potassium 2.9 L* Chloride 94 L Carbon Dioxide 32 H Anion Gap 11 BUN 58 H Creatinine 1.54 H Est GFR ( Amer) 52 L Est GFR (Non-Af Amer) 43 L Glucose 93 Calcium 9.0 Magnesium 2.1 01/01/18 01/01/18 01/02/18 05:45 05:45 04:24 Creatine Kinase 41 L CK-MB (CK-2) 1.61 Troponin I 0.090 NT-Pro-B Natriuret Pep 845 H 1330 H 01/02/18 08:48 Creatine Kinase CK-MB (CK-2) Troponin I NT-Pro-B Natriuret Pep 1330 H EKG Comments: Telemetry strip shows sinus rhythm with intermittent ventricular paced beats. Impressions: Chest X-Ray 01/02/18 00:00 IMPRESSION: Moderate cardiomegaly. No acute changes Assessment & Plan - Diagnosis (1) Congestive heart failure Qualifiers: Heart failure type: unspecified Is this a current diagnosis for this admission?: Yes (2) Cardiac pacemaker in situ Is this a current diagnosis for this admission?: Yes (3) Acute respiratory failure with hypoxia Is this a current diagnosis for this admission?: Yes (4) Hypokalemia Is this a current diagnosis for this admission?: Yes (5) Pneumonia Qualifiers: Pneumonia type: due to unspecified organism Laterality: bilateral Lung location: unspecified part of lung Qualified Code(s): J18.9 - Pneumonia, unspecified organism Is this a current diagnosis for this admission?: Yes (6) UBALDO (acute kidney injury) Is this a current diagnosis for this admission?: Yes (7) Paroxysmal atrial fibrillation Is this a current diagnosis for this admission?: Yes - Notes Notes: Hypokalemia is somewhat improved. Will start spironolactone. Patient's home medications were reviewed. Will consider restarting them gradually can be done as an outpatient. Heart rate is reasonably well controlled. At this point continue to monitor. May consider restarting beta blockers once blood pressure improves. A 2D echo preliminary report shows mildly depressed LVEF. Full report to be reviewed later. Congestive heart failure: Patient has elevated BNP. Patient has bibasilar infiltrate on chest x-ray. Patient presentation was for dyspnea. At this point patient seems to be in mild CHF. Will monitor for any fluid overload. Preliminary echo report shows systolic dysfunction, mild. A full report to be available later. Cardiac pacemaker in situ: This was placed approximately 3 years ago. Patient has a single-chamber pacemaker. Most likely placed because of underlying atrial fibrillation and bradycardia. Daughter tells me that it was interrogated within the last 1 year and was noted to be working fine.. Acute respiratory failure with hypoxemia: Most likely due to combination of COPD , pneumonia and CHF. Continue with oxygen supplementation. Hypokalemia: Patient has severe hypokalemia. Need to evaluate cause for it. Have started patient on his spironolactone therapy. Pneumonia: Continue with antibiotic therapy. Patient will benefit from pulmonary toilet. Acute kidney injury: Possibly related to pneumonia, some hypoxemia, sepsis. Likely to improve gradually. Continue to monitor renal functions. Paroxysmal atrial fibrillation: Currently on rate control and chronic anticoagulation's strategy. Continue Eliquis. Continue a small dose of beta- jeannie that patient was on at home. - Time Time with patient: Greater than 35 minutes - CODE STATUS was discussed, patient remains full code. Surrogate decision-maker unchanged. Multiple medical problems were addressed. More than 50% of the time spent coordinating care, discussing management plans with involved caregivers. Management plans discussed with involved personnels. Medical decision making was of moderate to high complexity, patient's has multiple comorbidities. Medications reviewed and adjusted accordingly: Yes
[2018-01-02] MEDS: APIXABAN 2.5 MG TABLET PO SCH (18:54)
--- NOTE | 2018-01-02 19:15 | XCELERA REPORT ---
[address] [address] Transthoracic Echocardiogram Report Name: ROSA RODARTE Age: 87 yrs Gender: Male : 1930 Patient Status: Inpatient Patient Location: [address] [place] [address] Study Date: 01/02/2018 10:18 AM Height: 68 in Weight: 165 lb BSA: 1.9 m2 Procedure: A complete two-dimensional transthoracic echocardiogram was performed (2D, M-mode, spectral and color flow Doppler). The study was technically adequate with some images being suboptimal in quality. Reason For Study: chf Ordering Physician: SANDY ZAMORANO Performed By: Lluvia Choudhury Interpretation Summary The left ventricular ejection fraction is normal. There is mild concentric left ventricular hypertrophy. Doppler measurements suggest pseudonormalized left ventricular relaxation, which is associated with grade II/IV or mild to moderate diastolic dysfunction The left ventricle is grossly normal size. Wall motion cannot be accurately commented on, but no definite regional wall motion abnormalities noted. The right ventricular systolic function is normal. No aortic regurgitation is present. There is no aortic valve stenosis There is a trace or physiologic amount of tricuspid regurgitation Tricuspid regurgitation jet envelope not well defined to measure RV systolic pressure accurately. The aortic root is not well visualized but is probably normal size. The inferior vena cava was not visualized There is no pericardial effusion. MMode/2D Measurements & Calculations RVDd: 3.4 cm LVIDd: 4.8 cm FS: 24.7 % Ao root diam: 3.2 cm IVSd: 0.97 cm LVIDs: 3.6 cm EDV(Teich): 109.4 ml LVPWd: 0.97 cm ESV(Teich): 56.0 ml Ao root area: 7.9 cm2 EF(Teich): 48.8 % Doppler Measurements & Calculations MV E max hemal: MV dec slope: Ao V2 max: LV V1 max P.2 cm/sec 105.5 cm/sec 3.4 mmHg MV A max hemal: 370.2 cm/sec2 Ao max PG: LV V1 max: 56.2 cm/sec MV dec time: 4.7 mmHg 92.7 cm/sec MV E/A: 1.5 0.23 sec PA V2 max: PI end-d hemal: TR max hemal: 103.1 cm/sec 77.9 cm/sec 241.9 cm/sec PA max P.3 mmHg TR max P.4 mmHg Left Ventricle The left ventricle is grossly normal size. There is mild concentric left ventricular hypertrophy. The left ventricular ejection fraction is normal. Doppler measurements suggest pseudonormalized left ventricular relaxation, which is associated with grade II/IV or mild to moderate diastolic dysfunction. Wall motion cannot be accurately commented on, but no definite regional wall motion abnormalities noted. Right Ventricle The right ventricle is grossly normal size. There is normal right ventricular wall thickness. The right ventricular systolic function is normal. Atria The right atrium is normal in size. The left atrium is mildly dilated. Interarterial septum not well visualized and not well dopplered. Cannot comment on ASD/PFO presence. Mitral Valve The mitral valve is grossly normal. There is no mitral valve stenosis. There is a trace amount of mitral regurgitation. Aortic Valve The aortic valve is grossly normal. There is no aortic valve stenosis. No aortic regurgitation is present. Tricuspid Valve The tricuspid valve is not well visualized, but is grossly normal. There is no tricuspid stenosis. There is a trace or physiologic amount of tricuspid regurgitation. Tricuspid regurgitation jet envelope not well defined to measure RV systolic pressure accurately. Pulmonic Valve The pulmonic valve is not well visualized. Great Vessels The aortic root is not well visualized but is probably normal size. The inferior vena cava was not visualized. Effusions There is no pericardial effusion. : SANDY ZAMORANO > Robert Denton
--- NOTE | 2018-01-02 19:25 | PDOC PROGRESS REPORT ---
Subjective Progress Note for:: 01/02/18 Subjective:: The patient is an 87-year-old male with a past medical history significant for moderate dementia. He has known coronary artery disease as well as a history of heart failure. He also has atrial fibrillation. The patient presented to the emergency room with failed outpatient treatment for an upper respiratory infection. He was found to be septic and was hypoxic at the time of admission. A CT scan of the chest revealed an underlying pneumonia. He was admitted to the hospital and started on broad-spectrum IV antibiotics. The patient has improved since the time of admission. Patient's daughter was present today and I spoke to her at length. Apparently he has had issues that have been worsening recently when he eats. He is having difficulty swallowing thin liquids without choking. She feels as if he may be aspirating and would like speech therapy to evaluate. She states that his mental status is significantly improved from the time she brought him in. She stated that he was quite confused for several days prior to admission. I spent quite some time discussing the plan of care with her and all of her questions were answered. The patient himself is awake and alert. He is pleasantly confused. A review of systems cannot be obtained Reason For Visit: ARF,HYPOKALEMIA PNEUMONIA Physical Exam Vital Signs: Temp Pulse Resp BP Pulse Ox 98.2 F 95 18 110/58 L 98 01/02/18 15:18 01/02/18 16:10 01/02/18 16:10 01/02/18 15:18 01/02/18 16:10 Intake & Output 01/01/18 01/02/18 01/03/18 06:59 06:59 06:59 Intake Total 400 3194 970 Output Total 250 2000 900 Balance 150 1194 70 Weight 75.1 kg 79.5 kg General appearance: PRESENT: no acute distress, well-developed, other - Chronically ill-appearing Head exam: PRESENT: atraumatic, normocephalic Mouth exam: PRESENT: moist, tongue midline Respiratory exam: PRESENT: other - He has scattered coarse breath sounds anteriorly Cardiovascular exam: PRESENT: RRR. ABSENT: diastolic murmur, rubs, systolic murmur GI/Abdominal exam: PRESENT: normal bowel sounds, soft. ABSENT: distended, guarding, mass, organolmegaly, rebound, tenderness Rectal exam: PRESENT: deferred Extremities exam: PRESENT: full ROM. ABSENT: calf tenderness, clubbing, pedal edema Neurological exam: PRESENT: alert, awake, oriented to person, oriented to place , oriented to time, oriented to situation, CN II-XII grossly intact. ABSENT: motor sensory deficit Psychiatric exam: PRESENT: appropriate affect, normal mood. ABSENT: homicidal ideation, suicidal ideation Skin exam: PRESENT: dry, intact, warm. ABSENT: cyanosis, rash Results Laboratory Results: 01/02/18 04:24 01/02/18 04:24 01/02/18 01/02/18 04:24 04:24 WBC 13.1 H RBC 3.76 L Hgb 11.9 L Hct 36.1 L MCV 96 MCH 31.5 MCHC 32.9 RDW 15.2 H Plt Count 179 Seg Neutrophils % 79.2 H Lymphocytes % 12.1 L Monocytes % 6.5 Eosinophils % 1.9 Basophils % 0.3 Absolute Neutrophils 10.4 H Absolute Lymphocytes 1.6 Absolute Monocytes 0.8 Absolute Eosinophils 0.3 Absolute Basophils 0.0 Sodium 137.3 Potassium 2.9 L* Chloride 94 L Carbon Dioxide 32 H Anion Gap 11 BUN 58 H Creatinine 1.54 H Est GFR ( Amer) 52 L Est GFR (Non-Af Amer) 43 L Glucose 93 Calcium 9.0 Magnesium 2.1 01/01/18 01/01/18 01/02/18 05:45 05:45 04:24 Creatine Kinase 41 L CK-MB (CK-2) 1.61 Troponin I 0.090 NT-Pro-B Natriuret Pep 845 H 1330 H 01/02/18 08:48 Creatine Kinase CK-MB (CK-2) Troponin I NT-Pro-B Natriuret Pep 1330 H Impressions: Chest X-Ray 01/02/18 00:00 IMPRESSION: Moderate cardiomegaly. No acute changes Assessment & Plan - Diagnosis (1) Acute respiratory failure with hypoxia Is this a current diagnosis for this admission?: Yes Plan: The patient does not wear oxygen at home. His respiratory failure is due to his underlying pneumonia. Continue oxygen support as needed and breathing treatments. Therapy will be outlined below (2) Sepsis due to pneumonia Is this a current diagnosis for this admission?: Yes Plan: Present on admission manifested by leukocytosis, tachycardia, hypertension. The patient also had an elevated lactic acid level and an acute kidney injury. The patient did have evidence of pneumonia on chest x-ray. Initial concerns were for gram negatives and MRSA. He has received 2 days of IV vancomycin and cefepime. At this point I suspect the patient has aspirated. I am going to stop his IV vancomycin and cefepime and place him on Zosyn today. (3) Acute encephalopathy Is this a current diagnosis for this admission?: Yes Plan: According to the patient's daughter he was acutely confused when he came into the hospital and this is improving. His acute encephalopathy was due to his underlying sepsis and infection. (4) Acute renal failure Is this a current diagnosis for this admission?: Yes Plan: Secondary to sepsis. He also was slightly dehydrated. The patient's creatinine continues to improve. We will check a chemistry panel in the morning. (5) Chronic diastolic (congestive) heart failure Is this a current diagnosis for this admission?: Yes Plan: The patient had an echocardiogram today. Per Dr. Denton he has diastolic dysfunction. He is not acutely volume overloaded at this point. We will need to watch him closely for signs of volume overload. (6) Paroxysmal atrial fibrillation Is this a current diagnosis for this admission?: Yes Plan: Currently in a sinus rhythm and rate control. Dr. Denton is following and I appreciate his assistance (7) Metabolic alkalosis Is this a current diagnosis for this admission?: Yes Plan: Likely due to his underlying pneumonia and respiratory status. (8) Precipitous drop in hematocrit Is this a current diagnosis for this admission?: Yes Plan: Secondary to hemodilution. (9) Hyponatremia Is this a current diagnosis for this admission?: Yes Plan: Likely due to acute illness. He will have a sodium level drawn in the morning. (10) Full code status Is this a current diagnosis for this admission?: Yes - Time Time Spent with patient: 25-34 minutes - Inpatient Certification Medical Necessity: Need for IV Antibiotics - Inpatient hospitalization remains necessary. The patient is requiring parenteral antibiotics for underlying pneumonia. Timing of disposition will be determined by his clinical course
[2018-01-02] MEDS: PIPERACILLIN SODIUM/TAZOBACTAM 3.375 GM in NORMAL SALINE 100 ML IV SCH (21:28)
[2018-01-03] MEDS: PIPERACILLIN SODIUM/TAZOBACTAM 3.375 GM in NORMAL SALINE 100 ML IV SCH ×4 (03:13→21:07)
[2018-01-03] MEDS ORDERED: VANCOMYCIN HCL 1,000 MG in DEXTROSE 5%-WATER 250 ML IV SCH (06:00)
[2018-01-03 06:24] LABS: ABSOLUTE EOSINOPHILS # (AUTO) 0.4 10^3/uL (0.0-0.6); ABSOLUTE LYMPHOCYTES (AUTO) 1.8 10^3/uL (0.5-4.7); ABSOLUTE NEUT (AUTO) 8.1 10^3/uL (1.7-8.2); BASOPHILS % (AUTO) 0.4 % (0-2); EOSINOPHILS % (AUTO) 3.7 % (0-6); HEMATOCRIT 37.5 % (37.9-51.0); HEMOGLOBIN 12.3 g/dL (13.5-17.0); LYMPHOCYTES % (AUTO) 15.6 % (13-45); MEAN CORPUSCULAR HEMOGLOBIN 31.4 pg (27.0-33.4); MEAN CORPUSCULAR HGB CONC 32.8 g/dL (32.0-36.0); MEAN CORPUSCULAR VOLUME 96 fl (80-97); PLATELET COUNT 212 10^3/uL (150-450); RED BLOOD COUNT 3.92 10^6/uL (4.35-5.55); RED CELL DISTRIBUTION WIDTH 15.5 % (11.5-14.0); SEGMENTED NEUTROPHILS % (AUTO) 71.3 % (42-78); TOTAL CELLS COUNTED % (AUTO) 100 %; WHITE BLOOD COUNT 11.3 10^3/uL (4.0-10.5)
[2018-01-03 06:53] LABS: ANION GAP 13 (5-19); BLOOD UREA NITROGEN 40 mg/dL (7-20); CALCIUM 9.1 mg/dL (8.4-10.2); CARBON DIOXIDE 29 mmol/L (22-30); CHLORIDE 98 mmol/L (98-107); GLUCOSE 94 mg/dL (75-110); POTASSIUM 3.2 mmol/L (3.6-5.0); SODIUM 139.8 mmol/L (137-145)
[2018-01-03] MEDS: IPRATROPIUM/ALBUTEROL 0.5-2.5 MG/3 ML AMPUL NEB SCH ×3 (08:48→23:52)
[2018-01-03] MEDS: APIXABAN 2.5 MG TABLET PO SCH ×2 (10:01→17:49)
[2018-01-03] MEDS: SPIRONOLACTONE 25 MG TABLET PO SCH (10:01)
--- NOTE | 2018-01-03 11:31 | PDOC PROGRESS REPORT ---
Subjective Progress Note for:: 01/03/18 Subjective:: Patient seems to be doing better with gradual improvement. Pt is denying any chest arm or neck discomfort. Patient still has some shortness of breath. Patient's daughter at bedside. Patient denying any PND, orthopnea. Patient denied any sustained palpitations, dizziness, syncope, near syncope. Patient denying any fever chills. Patient denying any other significant discomfort. Patient is maintaining sinus rhythm. Intermittent ventricular paced beats noted. Intermittent atrial fibrillation also noted. Review of systems: Rest review of systems negative. Medications: Medications have been reviewed. Reason For Visit: ARF,HYPOKALEMIA PNEUMONIA Physical Exam Vital Signs: Temp Pulse Resp BP Pulse Ox 97.7 F 82 20 135/75 H 94 01/03/18 08:02 01/03/18 08:48 01/03/18 08:48 01/03/18 08:02 01/03/18 08:48 Intake & Output 01/02/18 01/03/18 01/04/18 06:59 06:59 06:59 Intake Total 3194 1545 Output Total 1999 1850 Balance 1194 -305 Weight 79.5 kg 78.2 kg Exam: GENERAL: well-nourished and in no acute distress. Alert and oriented x2. I am told by the nurses that patient is pleasantly confused at times. HEAD: Atraumatic, normocephalic. EYES: Pupils equal round and reactive to light, extraocular movements intact, sclera anicteric, conjunctiva are normal. ENT: TMs normal, nares patent, oropharynx clear without exudates. Moist mucous membranes. No oral ulcerations or bleeding gums noted NECK: supple without lymphadenopathy. Trachea is central. No cervical or axillary lymphadenopathy noted. Carotids are 2+, JVD WNL LUNGS: Respiration seems nonlabored, no significant accessory muscle action noted. Breath sounds clear to auscultation bilaterally and equal noted. No wheezes rales or rhonchi noted. No significant dullness noted on percussion. CHEST: Palpation of the chest wall shows no significant chest wall tenderness. 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 ABDOMEN: Soft, no significant tenderness appreciated, normoactive bowel sounds. No guarding, no rebound. No rigidity noted . No masses appreciated. EXTREMITIES: Pedal pulses are 1-2+, no calf tenderness noted. No clubbing or cyanosis. negative pedal edema noted NEUROLOGICAL: Focused neurological exam showed no significant neurologic deficit. Normal speech, no focal weakness appreciated. PSYCH: Normal mood, normal affect. Judgment and insight not checked. SKIN: No significant ecchymosis, skin is noted to be warm. MUSCULOSKELETAL EXAM: No significant acute joint swelling noted. Results Laboratory Results: 01/03/18 05:23 01/03/18 05:23 01/03/18 01/03/18 05:23 05:23 WBC 11.3 H RBC 3.92 L Hgb 12.3 L Hct 37.5 L MCV 96 MCH 31.4 MCHC 32.8 RDW 15.5 H Plt Count 212 Seg Neutrophils % 71.3 Lymphocytes % 15.6 Monocytes % 9.0 Eosinophils % 3.7 Basophils % 0.4 Absolute Neutrophils 8.1 Absolute Lymphocytes 1.8 Absolute Monocytes 1.0 Absolute Eosinophils 0.4 Absolute Basophils 0.0 Sodium 139.8 Potassium 3.2 L Chloride 98 Carbon Dioxide 29 Anion Gap 13 BUN 40 H Creatinine 1.29 H Est GFR ( Amer) > 60 Est GFR (Non-Af Amer) 53 L Glucose 94 Calcium 9.1 Magnesium 2.0 01/01/18 01/01/18 01/02/18 05:45 05:45 04:24 Creatine Kinase 41 L CK-MB (CK-2) 1.61 Troponin I 0.090 NT-Pro-B Natriuret Pep 845 H 1330 H 01/02/18 08:48 Creatine Kinase CK-MB (CK-2) Troponin I NT-Pro-B Natriuret Pep 1330 H EKG Comments: Telemetry strips shows predominantly sinus rhythm with occasional ventricular paced beats and intermittent atrial fibrillation Impressions: Chest X-Ray 01/02/18 00:00 IMPRESSION: Moderate cardiomegaly. No acute changes Assessment & Plan - Diagnosis (1) Congestive heart failure Qualifiers: Heart failure type: unspecified Is this a current diagnosis for this admission?: Yes (2) Cardiac pacemaker in situ Is this a current diagnosis for this admission?: Yes (3) Acute respiratory failure with hypoxia Is this a current diagnosis for this admission?: Yes (4) Hypokalemia Is this a current diagnosis for this admission?: Yes (5) Pneumonia Qualifiers: Pneumonia type: due to unspecified organism Laterality: bilateral Lung location: unspecified part of lung Qualified Code(s): J18.9 - Pneumonia, unspecified organism Is this a current diagnosis for this admission?: Yes (6) UBALDO (acute kidney injury) Is this a current diagnosis for this admission?: Yes (7) Paroxysmal atrial fibrillation Is this a current diagnosis for this admission?: Yes - Notes Notes: Hypokalemia is somewhat improved. Started spironolactone yesterday. Patient's home medications were reviewed. Will consider restarting them gradually can be done as an outpatient. Heart rate is reasonably well controlled. At this point continue to monitor. May consider restarting beta blockers once blood pressure improves. 2D echo shows normal LVEF, grade 2 diastolic dysfunction, RV seems borderline enlarged. No significant valvular abnormalities noted. Congestive heart failure: Patient has elevated BNP. Patient has bibasilar infiltrate on chest x-ray. Patient presentation was for dyspnea. At this point patient seems to be in mild CHF. Will monitor for any fluid overload. 2D echo actually was read and showed normal LVEF, no significant valvular abnormalities were noted. Left atrium noted to be mildly dilated. Right ventricle also noted to be mildly dilated. Cardiac pacemaker in situ: This was placed approximately 3 years ago. Patient has a single-chamber pacemaker. Most likely placed because of underlying atrial fibrillation and bradycardia. Daughter tells me that it was interrogated within the last 1 year and was noted to be working fine.. Acute respiratory failure with hypoxemia: Most likely due to combination of COPD , pneumonia and CHF. Continue with oxygen supplementation. Hypokalemia: Patient has severe hypokalemia. Need to evaluate cause for it. Have started patient on his spironolactone therapy. Pneumonia: Continue with antibiotic therapy. Patient will benefit from pulmonary toilet. Acute kidney injury: Possibly related to pneumonia, some hypoxemia, sepsis. Likely to improve gradually. Continue to monitor renal functions. Lab work shows gradually improving renal functions. Paroxysmal atrial fibrillation: Currently on rate control and chronic anticoagulation's strategy. Continue Eliquis. Continue a small dose of beta- jeannie that patient was on at home. Patient generally is stable from cardiac standpoint. Will sign off. Patient does follow-up with us in the office therefore please make a follow-up appointment with [facility]/Dr. Denton as an outpatient on discharge. - Time Time with patient: Greater than 35 minutes - CODE STATUS was discussed, patient remains full code. Surrogate decision-maker patient's daughter. Multiple medical problems were addressed. More than 50% of the time spent coordinating care, discussing management plans with involved caregivers. Management plans discussed with involved personnels. Medical decision making was of moderate to high complexity, patient's has multiple comorbidities. Medications reviewed and adjusted accordingly: Yes
--- NOTE | 2018-01-03 20:10 | PDOC PROGRESS REPORT ---
Subjective Progress Note for:: 01/03/18 Subjective:: Doing better today. No chest pain or shortness of breath or palpitations. Cough better. No fever or chills. Reason For Visit: ARF,HYPOKALEMIA PNEUMONIA Physical Exam Vital Signs: Temp Pulse Resp BP Pulse Ox 98.4 F 81 20 107/63 92 01/03/18 15:24 01/03/18 16:47 01/03/18 16:47 01/03/18 15:24 01/03/18 16:47 Intake & Output 01/02/18 01/03/18 01/04/18 06:59 06:59 06:59 Intake Total 3195 1545 684 Output Total 1999 3479 551 Balance 5918 -637 -570 Weight 79.5 kg 78.2 kg GEN: NAD, well-developed, well-nourished CV: RRR, NL S1S2 LUNGS: Few basilar crackles ABDOMEN Soft, NT, +BS EXTERMITIES: No e/c/c NEURO: Alert, oriented 3, generalized weakness but no acute lateralizing weakness Results Laboratory Results: 01/03/18 05:23 01/03/18 05:23 01/03/18 01/03/18 05:23 05:23 WBC 11.3 H RBC 3.92 L Hgb 12.3 L Hct 37.5 L MCV 96 MCH 31.4 MCHC 32.8 RDW 15.5 H Plt Count 212 Seg Neutrophils % 71.3 Lymphocytes % 15.6 Monocytes % 9.0 Eosinophils % 3.7 Basophils % 0.4 Absolute Neutrophils 8.1 Absolute Lymphocytes 1.8 Absolute Monocytes 1.0 Absolute Eosinophils 0.4 Absolute Basophils 0.0 Sodium 139.8 Potassium 3.2 L Chloride 98 Carbon Dioxide 29 Anion Gap 13 BUN 40 H Creatinine 1.29 H Est GFR ( Amer) > 60 Est GFR (Non-Af Amer) 53 L Glucose 94 Calcium 9.1 Magnesium 2.0 01/01/18 01/01/18 01/02/18 05:45 05:45 04:24 Creatine Kinase 41 L CK-MB (CK-2) 1.61 Troponin I 0.090 NT-Pro-B Natriuret Pep 845 H 1330 H 01/02/18 08:48 Creatine Kinase CK-MB (CK-2) Troponin I NT-Pro-B Natriuret Pep 1330 H Impressions: Chest X-Ray 01/02/18 00:00 IMPRESSION: Moderate cardiomegaly. No acute changes Assessment & Plan - Plan Summary Plan Summary: (1) Acute respiratory failure with hypoxia Is this a current diagnosis for this admission?: Yes Plan: The patient does not wear oxygen at home. His respiratory failure is due to his underlying pneumonia. Continue oxygen support as needed and breathing treatments. Attempted weaned off of O2 in progress. (2) Sepsis due to pneumonia Is this a current diagnosis for this admission?: Yes Plan: Present on admission manifested by leukocytosis, tachycardia, hypertension. The patient also had an elevated lactic acid level and an acute kidney injury. The patient did have evidence of pneumonia on chest x-ray. Initial concerns were for gram negatives and MRSA. He received 2 days of IV vancomycin and cefepime. There was concern that patient likely aspirated antibiotics was changed to Zosyn 01/02/18. This is day 2 Zosyn. (3) Acute encephalopathy Is this a current diagnosis for this admission?: Yes Plan: According to family he was acutely confused when he came into the hospital and this is improving. His acute encephalopathy was due to his underlying sepsis and infection. (4) Acute renal failure Is this a current diagnosis for this admission?: Yes Plan: Secondary to sepsis. He also was slightly dehydrated. The patient's creatinine continues to improve. We will check a chemistry panel in the morning. (5) Chronic diastolic (congestive) heart failure Is this a current diagnosis for this admission?: Yes Plan: The patient had an echocardiogram 01/02/18 revealing diastolic dysfunction. He is not acutely volume overloaded at this point. We will need to watch him closely for signs of volume overload. (6) Paroxysmal atrial fibrillation Is this a current diagnosis for this admission?: Yes Plan: Currently in a sinus rhythm and rate control. Dr. Denton is following and we appreciate his assistance (7) Metabolic alkalosis Is this a current diagnosis for this admission?: Yes Plan: Likely due to his underlying pneumonia and respiratory status.
[2018-01-04] MEDS: PIPERACILLIN SODIUM/TAZOBACTAM 3.375 GM in NORMAL SALINE 100 ML IV SCH ×4 (03:08→22:07)
[2018-01-04 06:16] LABS: ABSOLUTE BASOPHILS # (AUTO) 0.1 10^3/uL (0.0-0.2); ABSOLUTE EOSINOPHILS # (AUTO) 0.5 10^3/uL (0.0-0.6); ABSOLUTE LYMPHOCYTES (AUTO) 1.5 10^3/uL (0.5-4.7); ABSOLUTE NEUT (AUTO) 8.4 10^3/uL (1.7-8.2); BASOPHILS % (AUTO) 0.6 % (0-2); EOSINOPHILS % (AUTO) 4.8 % (0-6); HEMATOCRIT 37.2 % (37.9-51.0); HEMOGLOBIN 12.3 g/dL (13.5-17.0); LYMPHOCYTES % (AUTO) 12.7 % (13-45); MEAN CORPUSCULAR HEMOGLOBIN 31.8 pg (27.0-33.4); MEAN CORPUSCULAR VOLUME 96 fl (80-97); MONOCYTES % (AUTO) 8.8 % (3-13); PLATELET COUNT 202 10^3/uL (150-450); RED BLOOD COUNT 3.87 10^6/uL (4.35-5.55); RED CELL DISTRIBUTION WIDTH 15.6 % (11.5-14.0); SEGMENTED NEUTROPHILS % (AUTO) 73.1 % (42-78); TOTAL CELLS COUNTED % (AUTO) 100 %; WHITE BLOOD COUNT 11.5 10^3/uL (4.0-10.5)
[2018-01-04 06:43] LABS: ANION GAP 11 (5-19); BLOOD UREA NITROGEN 30 mg/dL (7-20); CALCIUM 9.4 mg/dL (8.4-10.2); CARBON DIOXIDE 33 mmol/L (22-30); CHLORIDE 97 mmol/L (98-107); GLUCOSE 86 mg/dL (75-110); POTASSIUM 3.5 mmol/L (3.6-5.0); SODIUM 141.1 mmol/L (137-145)
[2018-01-04] MEDS: IPRATROPIUM/ALBUTEROL 0.5-2.5 MG/3 ML AMPUL NEB SCH ×2 (08:30→16:08)
[2018-01-04] MEDS: SPIRONOLACTONE 25 MG TABLET PO SCH (10:32)
[2018-01-04] MEDS: APIXABAN 2.5 MG TABLET PO SCH ×2 (10:32→17:50)
[2018-01-04] MEDS: ACETAMINOPHEN 325 MG TABLET PO PRN (12:45)
--- NOTE | 2018-01-04 16:28 | PDOC PROGRESS REPORT ---
Subjective Progress Note for:: 01/04/18 Subjective:: Continues doing better today. Son at bedside. No chest pain or shortness of breath or palpitations. Cough better. No fever or chills. Reason For Visit: ARF,HYPOKALEMIA PNEUMONIA Physical Exam Vital Signs: Temp Pulse Resp BP Pulse Ox 97.5 F 90 16 123/66 99 01/04/18 12:21 01/04/18 16:05 01/04/18 16:05 01/04/18 12:21 01/04/18 16:05 Intake & Output 01/03/18 01/04/18 01/05/18 06:59 06:59 06:59 Intake Total 1545 1059 Output Total 1850 1800 Balance -305 -741 Weight 78.2 kg 78.1 kg GEN: NAD, well-developed, well-nourished CV: RRR, NL S1S2 LUNGS: Few basilar crackles ABDOMEN Soft, NT, +BS EXTERMITIES: No e/c/c NEURO: Alert, oriented 3, generalized weakness but no acute lateralizing weakness Results Laboratory Results: 01/04/18 05:25 01/04/18 05:25 01/04/18 01/04/18 05:25 05:25 WBC 11.5 H RBC 3.87 L Hgb 12.3 L Hct 37.2 L MCV 96 MCH 31.8 MCHC 33.0 RDW 15.6 H Plt Count 202 Seg Neutrophils % 73.1 Lymphocytes % 12.7 L Monocytes % 8.8 Eosinophils % 4.8 Basophils % 0.6 Absolute Neutrophils 8.4 H Absolute Lymphocytes 1.5 Absolute Monocytes 1.0 Absolute Eosinophils 0.5 Absolute Basophils 0.1 Sodium 141.1 Potassium 3.5 L Chloride 97 L Carbon Dioxide 33 H Anion Gap 11 BUN 30 H Creatinine 1.09 Est GFR ( Amer) > 60 Est GFR (Non-Af Amer) > 60 Glucose 86 Calcium 9.4 01/01/18 01/01/18 01/02/18 05:45 05:45 04:24 Creatine Kinase 41 L CK-MB (CK-2) 1.61 Troponin I 0.090 NT-Pro-B Natriuret Pep 845 H 1330 H 01/02/18 08:48 Creatine Kinase CK-MB (CK-2) Troponin I NT-Pro-B Natriuret Pep 1330 H Impressions: Chest X-Ray 01/02/18 00:00 IMPRESSION: Moderate cardiomegaly. No acute changes Assessment & Plan - Plan Summary Plan Summary: (1) Acute respiratory failure with hypoxia Is this a current diagnosis for this admission?: Yes Plan: The patient does not wear oxygen at home. His respiratory failure is due to his underlying pneumonia. He has now been weaned off oxygen and doing okay. (2) Sepsis due to pneumonia Is this a current diagnosis for this admission?: Yes Plan: Present on admission manifested by leukocytosis, tachycardia, hypertension. The patient also had an elevated lactic acid level and an acute kidney injury. The patient did have evidence of pneumonia on chest x-ray. Initial concerns were for gram negatives and MRSA. He received 2 days of IV vancomycin and cefepime. There was concern that patient likely aspirated antibiotics was changed to Zosyn 01/02/18. This is day 3 Zosyn and leukocytosis improving/ stable. (3) Acute encephalopathy Is this a current diagnosis for this admission?: Yes Plan: Improved. Continue to monitor. (4) Acute renal failure Is this a current diagnosis for this admission?: Yes Plan: Secondary to sepsis. He also was slightly dehydrated. The patient's creatinine continues to improve. We will check a chemistry panel in the morning. (5) Chronic diastolic (congestive) heart failure Is this a current diagnosis for this admission?: Yes Plan: The patient had an echocardiogram 01/02/18 revealing diastolic dysfunction. He is not acutely volume overloaded at this point. We will need to watch him closely for signs of volume overload. (6) Paroxysmal atrial fibrillation Is this a current diagnosis for this admission?: Yes Plan: Currently in a sinus rhythm and rate control. Dr. Denton is following and we appreciate his assistance (7) Metabolic alkalosis Is this a current diagnosis for this admission?: Yes Plan: Likely due to his underlying pneumonia and respiratory status.
[2018-01-05] MEDS: IPRATROPIUM/ALBUTEROL 0.5-2.5 MG/3 ML AMPUL NEB SCH ×3 (00:42→15:50)
[2018-01-05] MEDS: PIPERACILLIN SODIUM/TAZOBACTAM 3.375 GM in NORMAL SALINE 100 ML IV SCH ×4 (03:48→21:47)
[2018-01-05 05:39] LABS: ABSOLUTE BASOPHILS # (AUTO) 0.1 10^3/uL (0.0-0.2); ABSOLUTE EOSINOPHILS # (AUTO) 0.7 10^3/uL (0.0-0.6); ABSOLUTE LYMPHOCYTES (AUTO) 1.9 10^3/uL (0.5-4.7); ABSOLUTE NEUT (AUTO) 8.3 10^3/uL (1.7-8.2); BASOPHILS % (AUTO) 0.5 % (0-2); EOSINOPHILS % (AUTO) 6.1 % (0-6); HEMATOCRIT 38.7 % (37.9-51.0); HEMOGLOBIN 12.7 g/dL (13.5-17.0); MEAN CORPUSCULAR HEMOGLOBIN 31.7 pg (27.0-33.4); MEAN CORPUSCULAR HGB CONC 32.9 g/dL (32.0-36.0); MEAN CORPUSCULAR VOLUME 96 fl (80-97); MONOCYTES % (AUTO) 8.4 % (3-13); PLATELET COUNT 192 10^3/uL (150-450); RED BLOOD COUNT 4.02 10^6/uL (4.35-5.55); TOTAL CELLS COUNTED % (AUTO) 100 %
[2018-01-05 06:21] LABS: ANION GAP 15 (5-19); BLOOD UREA NITROGEN 26 mg/dL (7-20); CALCIUM 9.5 mg/dL (8.4-10.2); CARBON DIOXIDE 29 mmol/L (22-30); CHLORIDE 98 mmol/L (98-107); GLUCOSE 74 mg/dL (75-110); POTASSIUM 3.2 mmol/L (3.6-5.0); SODIUM 141.6 mmol/L (137-145)
[2018-01-05] MEDS: APIXABAN 2.5 MG TABLET PO SCH ×2 (10:52→17:26)
[2018-01-05] MEDS: SPIRONOLACTONE 25 MG TABLET PO SCH (10:52)
--- NOTE | 2018-01-05 11:43 | PDOC PROGRESS REPORT ---
Subjective Progress Note for:: 01/05/18 Subjective:: Doing better, better. No chest pain or shortness of breath or palpitations. No fever or chills. Reason For Visit: ARF,HYPOKALEMIA PNEUMONIA Physical Exam Vital Signs: Temp Pulse Resp BP Pulse Ox 97.4 F 77 16 139/79 H 98 01/05/18 07:53 01/05/18 08:14 01/05/18 08:14 01/05/18 07:53 01/05/18 08:14 Intake & Output 01/04/18 01/05/18 01/06/18 06:59 06:59 06:59 Intake Total 1059 918 Output Total 1800 850 Balance -741 68 Weight 78.1 kg 77.3 kg GEN: NAD, well-developed, well-nourished CV: RRR, NL S1S2 LUNGS: Few basilar crackles, good air movements ABDOMEN Soft, NT, +BS EXTERMITIES: No e/c/c NEURO: Alert, oriented 3, generalized weakness but no acute lateralizing weakness Results Laboratory Results: 01/05/18 04:30 01/05/18 04:30 01/05/18 01/05/18 04:30 04:30 WBC 12.0 H RBC 4.02 L Hgb 12.7 L Hct 38.7 MCV 96 MCH 31.7 MCHC 32.9 RDW 16.0 H Plt Count 192 Seg Neutrophils % 69.0 Lymphocytes % 16.0 Monocytes % 8.4 Eosinophils % 6.1 H Basophils % 0.5 Absolute Neutrophils 8.3 H Absolute Lymphocytes 1.9 Absolute Monocytes 1.0 Absolute Eosinophils 0.7 H Absolute Basophils 0.1 Sodium 141.6 Potassium 3.2 L Chloride 98 Carbon Dioxide 29 Anion Gap 15 BUN 26 H Creatinine 1.10 Est GFR ( Amer) > 60 Est GFR (Non-Af Amer) > 60 Glucose 74 L Calcium 9.5 01/01/18 01/01/18 01/02/18 05:45 05:45 04:24 Creatine Kinase 41 L CK-MB (CK-2) 1.61 Troponin I 0.090 NT-Pro-B Natriuret Pep 845 H 1330 H 01/02/18 08:48 Creatine Kinase CK-MB (CK-2) Troponin I NT-Pro-B Natriuret Pep 1330 H Impressions: Chest X-Ray 01/02/18 00:00 IMPRESSION: Moderate cardiomegaly. No acute changes Assessment & Plan - Plan Summary Plan Summary: (1) Acute respiratory failure with hypoxia Is this a current diagnosis for this admission?: Yes Plan: Secondary to pneumonia. Improved. He has now been weaned off oxygen and doing okay. (2) Sepsis due to pneumonia Is this a current diagnosis for this admission?: Yes Plan: Present on admission manifested by leukocytosis, tachycardia, hypertension. The patient also had an elevated lactic acid level and an acute kidney injury. The patient did have evidence of pneumonia on chest x-ray. Initial concerns were for gram negatives and MRSA. He received 2 days of IV vancomycin and cefepime. There was concern that patient likely aspirated antibiotics was changed to Zosyn 01/02/18. This is day 3 Zosyn and leukocytosis improving/ stable. (3) Acute encephalopathy Is this a current diagnosis for this admission?: Yes Plan: Improved. Continue to monitor. (4) Acute renal failure Is this a current diagnosis for this admission?: Yes Plan: Secondary to sepsis. He also was slightly dehydrated. The patient's creatinine continues to improve. We will check a chemistry panel in the morning. (5) Chronic diastolic (congestive) heart failure Is this a current diagnosis for this admission?: Yes Plan: The patient had an echocardiogram 01/02/18 revealing diastolic dysfunction. He is not acutely volume overloaded at this point. We will need to watch him closely for signs of volume overload. (6) Paroxysmal atrial fibrillation Is this a current diagnosis for this admission?: Yes Plan: Currently in a sinus rhythm and rate control. Dr. Denton is following and we appreciate his assistance (7) Metabolic alkalosis Is this a current diagnosis for this admission?: Yes Plan: Likely due to his underlying pneumonia and respiratory status. (8) hypokalemia Is this a current diagnosis for this admission?: Yes Plan: Potassium repletion and recheck in the morning.
[2018-01-05] MEDS ORDERED: POTASSIUM CHLORIDE 10 MEQ TABLET.SA PO SCH (12:00)
[2018-01-05] MEDS: POTASSIUM CHLORIDE 20 MEQ/15 ML UDCUP PO SCH ×2 (17:26→23:37)
[2018-01-06] MEDS: IPRATROPIUM/ALBUTEROL 0.5-2.5 MG/3 ML AMPUL NEB SCH ×3 (00:03→15:31)
[2018-01-06] MEDS: PIPERACILLIN SODIUM/TAZOBACTAM 3.375 GM in NORMAL SALINE 100 ML IV SCH ×3 (03:13→15:04)
[2018-01-06] MEDS: POTASSIUM CHLORIDE 20 MEQ/15 ML UDCUP PO SCH ×3 (06:03→17:27)
[2018-01-06 06:40] LABS: ABSOLUTE BASOPHILS # (AUTO) 0.1 10^3/uL (0.0-0.2); ABSOLUTE EOSINOPHILS # (AUTO) 0.8 10^3/uL (0.0-0.6); ABSOLUTE LYMPHOCYTES (AUTO) 1.9 10^3/uL (0.5-4.7); ABSOLUTE MONOCYTES (AUTO) 0.9 10^3/uL (0.1-1.4); ABSOLUTE NEUT (AUTO) 6.3 10^3/uL (1.7-8.2); BASOPHILS % (AUTO) 0.6 % (0-2); EOSINOPHILS % (AUTO) 7.8 % (0-6); HEMATOCRIT 37.6 % (37.9-51.0); HEMOGLOBIN 12.5 g/dL (13.5-17.0); MEAN CORPUSCULAR HGB CONC 33.1 g/dL (32.0-36.0); MEAN CORPUSCULAR VOLUME 97 fl (80-97); MONOCYTES % (AUTO) 9.4 % (3-13); PLATELET COUNT 150 10^3/uL (150-450); RED BLOOD COUNT 3.89 10^6/uL (4.35-5.55); RED CELL DISTRIBUTION WIDTH 16.4 % (11.5-14.0); SEGMENTED NEUTROPHILS % (AUTO) 63.2 % (42-78); TOTAL CELLS COUNTED % (AUTO) 100 %; WHITE BLOOD COUNT 9.9 10^3/uL (4.0-10.5)
[2018-01-06 06:59] LABS: ANION GAP 11 (5-19); BLOOD UREA NITROGEN 22 mg/dL (7-20); CALCIUM 9.4 mg/dL (8.4-10.2); CARBON DIOXIDE 29 mmol/L (22-30); CHLORIDE 101 mmol/L (98-107); GLUCOSE 84 mg/dL (75-110); POTASSIUM 4.1 mmol/L (3.6-5.0); SODIUM 141.2 mmol/L (137-145)
[2018-01-06] MEDS: APIXABAN 2.5 MG TABLET PO SCH ×2 (10:50→17:28)
[2018-01-06] MEDS: SPIRONOLACTONE 25 MG TABLET PO SCH (10:50)
[2018-01-06] MEDS: ACETAMINOPHEN 325 MG TABLET PO PRN ×2 (13:25→18:27)
[2018-01-06 19:45] VITALS: BP 127/80
--- NOTE | 2018-01-06 21:04 | PDOC DISCHARGE SUMMARY ---
General - Admit/Disc Date/PCP Admission Date/Primary Care Provider: 01/01/18 01:33 Discharge Date: 01/06/18 - Additional Information Resuscitation Status: Full Code Discharge Diet: Cardiac Discharge Activity: Activity As Tolerated, Balance Activity w/Rest, Weigh Daily Prescriptions: Clindamycin HCl [Cleocin 300 mg Capsule] 300 mg PO Q8H 3 Days capsule Spironolactone [Aldactone 25 mg Tablet] 25 mg PO DAILY #30 tablet Home Medications: Albuterol Sulfate [Albuterol Sulfate 2.5mg/3 mL] 1 vial IH QIDP PRN 01/01/18 Allopurinol [Zyloprim 300 mg Tablet] 300 mg PO DAILY 01/01/18 Apixaban [Eliquis 2.5 mg Tablet] 2.5 mg PO Q12 01/01/18 Cholecalciferol (Vitamin D3) [Vitamin D3 2000 unit Tablet] 2,000 unit PO DAILY 01/01/18 Donepezil HCl [Aricept 5 mg Tablet] 5 mg PO QHS 01/01/18 Fexofenadine HCl [Naz Allergy] 180 mg PO DAILY 01/01/18 Metolazone [Zaroxolyn 5 mg Tablet] 5 mg PO DAILYP PRN 01/01/18 Metoprolol Succinate [Toprol Xl 25 mg Tab.sr] 12.5 mg PO DAILY 01/01/18 Omeprazole 20 mg PO DAILY 01/01/18 Clindamycin HCl [Cleocin 300 mg Capsule] 300 mg PO Q8H 3 Days capsule 01/06/18 Furosemide [Lasix 40 mg Tablet] 40 mg PO DAILY #0 01/06/18 Spironolactone [Aldactone 25 mg Tablet] 25 mg PO DAILY #30 tablet 01/06/18 History of Present Illness History of Present Illness: Patient was admitted to the hospitalist service after he presented as an HPI below: "ROSA RODARTE is a 87 year old male with history of dementia, coronary artery disease, unclear heart failure, chronic constipation, atrial fibrillation and physical debility. Patient recently treated for suspected bronchitis with Levaquin who now presents with vague abdominal pain and cough. Patient is an extremely poor historian unable to provide meaningful history. In the emergency room he is found to have leukocytosis of 20,000, prerenal azotemia, metabolic alkalosis and hypokalemia. A CT of chest, abdomen pelvis revealed atelectasis versus pneumonia in the bases bilaterally, moderate stool retention and a renal cyst. Urinalysis is unremarkable. He receives empiric antibiotics of vancomycin and cefepime and referred to the hospitalist for admission." Hospital Course Hospital Course: Patient admitted to hospitalist service and managed as follows: (1) Acute respiratory failure with hypoxia Is this a current diagnosis for this admission?: Yes Plan: Secondary to pneumonia. Improved. He has now been weaned off oxygen and doing quite well. (2) Sepsis due to pneumonia Is this a current diagnosis for this admission?: Yes Plan: Present on admission manifested by leukocytosis, tachycardia, hypertension. The patient also had an elevated lactic acid level and an acute kidney injury. The patient did have evidence of pneumonia on chest x-ray. Initial concerns were for gram negatives and MRSA. He received 2 days of IV vancomycin and cefepime. There was concern that patient likely aspirated antibiotics was changed to Zosyn 01/02/18. This is day 4 Zosyn and leukocytosis resolved. Is being discharged on clindamycin every 8 hours for 3 additional days of antibiotics. (3) Acute encephalopathy Is this a current diagnosis for this admission?: Yes Plan: Resolved. Patient back to baseline per family. (4) Acute renal failure Is this a current diagnosis for this admission?: Yes Plan: Secondary to sepsis. He also was slightly dehydrated. The patient's creatinine continued to improve and has now stabilized that 1.1. (5) Chronic diastolic (congestive) heart failure Is this a current diagnosis for this admission?: Yes Plan: The patient had an echocardiogram 01/02/18 revealing diastolic dysfunction. He is not acutely volume overloaded at this point. He was followed by Dr. Denton of cardiology who added spironolactone to his medications. He is being discharged on Spironolactone 25 mg daily, and his Lasix is decreased from twice daily to daily. (6) Paroxysmal atrial fibrillation Is this a current diagnosis for this admission?: Yes Plan: Currently in a sinus rhythm and rate control. Dr. Denton is followed. He is on Eliquis for anticoagulation and risk and benefits of this medication explained and he verbalized understanding and agree with continuing. Currently has no problem with bleeding. (7) hypokalemia Is this a current diagnosis for this admission?: Yes Plan: Potassium repleted. Disposition Patient has markedly improved. He is to follow up with his primary care physician within 1 week. Recommend PCP recheck chest x-ray in 1-4 weeks to ensure complete clearing. Physical Exam Vital Signs: Temp Pulse Resp BP Pulse Ox 97.6 F 72 16 132/77 H 96 01/06/18 08:00 01/06/18 08:38 01/06/18 08:38 01/06/18 08:00 01/06/18 08:38 Intake & Output 01/05/18 01/06/18 01/07/18 06:59 06:59 06:59 Intake Total 918 1824 Output Total 850 Balance 68 1824 Weight 77.3 kg 77.2 kg GEN: NAD, well-developed, well-nourished CV: RRR, NL S1S2 LUNGS: Few basilar crackles, clear with coughing, patient with good air movements ABDOMEN Soft, NT, +BS EXTERMITIES: No e/c/c NEURO: Alert, oriented 3, generalized weakness but no acute lateralizing weakness Results Laboratory Results: 01/06/18 06:33 01/06/18 06:33 01/06/18 01/06/18 01/06/18 05:03 06:33 06:33 WBC 9.9 RBC 3.89 L Hgb 12.5 L Hct 37.6 L MCV 97 MCH 32.0 MCHC 33.1 RDW 16.4 H Plt Count 150 Seg Neutrophils % 63.2 Lymphocytes % 19.0 Monocytes % 9.4 Eosinophils % 7.8 H Basophils % 0.6 Absolute Neutrophils 6.3 Absolute Lymphocytes 1.9 Absolute Monocytes 0.9 Absolute Eosinophils 0.8 H Absolute Basophils 0.1 Sodium Cancelled 141.2 Potassium Cancelled 4.1 Chloride Cancelled 101 Carbon Dioxide Cancelled 29 Anion Gap Cancelled 11 BUN Cancelled 22 H Creatinine Cancelled 1.09 Est GFR ( Amer) Cancelled > 60 Est GFR (Non-Af Amer) Cancelled > 60 Glucose Cancelled 84 Calcium Cancelled 9.4 01/01/18 01/01/18 01/02/18 05:45 05:45 04:24 Creatine Kinase 41 L CK-MB (CK-2) 1.61 Troponin I 0.090 NT-Pro-B Natriuret Pep 845 H 1330 H 01/02/18 08:48 Creatine Kinase CK-MB (CK-2) Troponin I NT-Pro-B Natriuret Pep 1330 H Impressions: Chest X-Ray 01/02/18 00:00 IMPRESSION: Moderate cardiomegaly. No acute changes Qualifiers - * PATIENT BEING DISCHARGED WITH ANY OF THE FOLLOWING DIAGNOSIS: No
== END 2018-01-06 20:07 | disposition home health service (06) | DRG 871 ==
LOC: ER 23:14 → EH 01-01 01:33 → 4S 01-01 04:05
PROVIDERS: ADMIT Internal Medicine; ATTEND Internal Medicine
DX: A41.9 Sepsis, unspecified organism (principal); J18.9 Pneumonia, unspecified organism; G93.41 Metabolic encephalopathy; J96.01 Acute respiratory failure with hypoxia; N17.9 Acute kidney failure, unspecified; E87.3 Alkalosis; R71.0 Precipitous drop in hematocrit; I13.0 Hypertensive heart and chronic kidney disease with heart failure and stage 1 through stage 4 chronic kidney disease, or unspecified chronic kidney disease; I50.32 Chronic diastolic (congestive) heart failure; E87.6 Hypokalemia; I25.10 Atherosclerotic heart disease of native coronary artery without angina pectoris; F03.90 Unspecified dementia, unspecified severity, without behavioral disturbance, psychotic disturbance, mood disturbance, and anxiety; K59.09 Other constipation; D72.829 Elevated white blood cell count, unspecified; I50.9 Heart failure, unspecified; N18.9 Chronic kidney disease, unspecified; Z82.49 Family history of ischemic heart disease and other diseases of the circulatory system; I48.0 Paroxysmal atrial fibrillation; Z95.0 Presence of cardiac pacemaker; Z79.01 Long term (current) use of anticoagulants; E86.0 Dehydration; Z79.51 Long term (current) use of inhaled steroids; Z79.899 Other long term (current) drug therapy
CPT/HCPCS: 36415; 51702; 71045; 74176; 80048; 80053; 81001; 82550; 82553; 83605; 83690; 83735; 83880; 84484; 85025; 85610; 87040; 93005; 93010; 93306; 94640; 94667; 94668; 94799; 99285; G8978-GP; G8979-GP; J0692; J1644; J2543; J3370; J3480; J3490; J7030; J7620